=== PATIENT | female | born 1965 | race Caucasian/White ===

== ENCOUNTER 2023-03-25 12:28 | Outpatient (OUT) | payer OTHER, SELFPAY ==
[2023-03-25 13:44] LABS: Estimated Average Glucose 97 mg/dL
[2023-03-25 14:04] LABS: Basophils Percent Auto 0.3 % (0.2-2.0); Eosinophils Absolute Auto 0.1 10^3/uL (0.0-0.7); Eosinophils Percent Auto 0.7 % (0.9-7.0); Hematocrit 45.9 % (36.0-48.0); Hemoglobin 14.8 g/dL (12.0-16.0); Immature Granulocytes Abs Auto 0.03 10^3/uL (0.00-0.03); Immature Granulocytes Pct Auto 0.4 % (0.0-0.5); Lymphocytes Absolute Auto 2.6 10^3/uL (1.2-3.8); Lymphocytes Percent Auto 37.8 % (20.5-60.0); Mean Corpuscular HGB Conc 32.2 g/dL (29.9-35.2); Mean Corpuscular Hemoglobin 30.1 pg (26.7-34.0); Mean Corpuscular Volume 93.5 fL (81.0-99.0); Mean Platelet Volume 10.3 fL (9.5-13.5); Monocytes Absolute Auto 0.5 10^3/uL (0.3-0.8); Monocytes Percent Auto 7.1 % (1.7-12.0); Neutrophils Absolute Auto 3.6 10^3/uL (1.4-6.5); Neutrophils Percent Auto 53.7 % (43.0-75.0); Platelet Count 282 10^3/uL (150-450); Red Blood Count 4.91 10^6/uL (4.20-5.40); Red Cell Distribution Width 13.3 % (11.0-15.0); White Blood Count 6.8 10^3/uL (4.0-11.0)
[2023-03-25 15:28] LABS: Alanine Aminotransferase 23 U/L (14-59); Albumin Globulin Ratio 1.1; Albumin Level 4.1 g/dL (3.4-5.0); Alkaline Phosphatase 97 U/L (46-116); Anion Gap 10.8; Aspartate Amino Transferase 18 U/L (15-37); BUN Creatinine Ratio 13.4; Bilirubin Total 0.6 mg/dL (0.2-1.0); Calcium 9.3 mg/dL (8.5-10.1); Carbon Dioxide 30.3 mmol/L (21.0-32.0); Chloride 98 mmol/L (98-107); Chol HDL Ratio 2.5; Cholesterol 225 mg/dL (<=200); Estimated GFR (African America >60 (>=60); Estimated GFR (Non-African Ame >60 (>=60); Free T3 2.54 pg/mL (2.18-3.98); Globulin 3.9 g/dL; Glucose 87 mg/dL (74-106); HDL Cholesterol 90 mg/dL (40-60); Potassium 4.1 mmol/L (3.5-5.1); Sodium 135 mmol/L (136-145); Thyroid Stimulating Hormone 1.475 uIU/mL (0.358-3.740); Triglycerides 72 mg/dL (<=150); VLDL CHOLESTEROL 14.4 mg/dL
== END 2023-03-25 12:29 | disposition home or self-care (01) ==
LOC: LAB 12:34
PROVIDERS: PCP Family Medicine; Visit Provider Family Medicine
DX: Z00.00 Encounter for general adult medical examination without abnormal findings (principal)
CPT/HCPCS: 36415; 80053; 80061; 83036; 83540; 84436; 84443; 84481; 85025

== ENCOUNTER 2023-04-30 13:26 | Outpatient (REF) | payer OTHER, SELFPAY ==
[2023-04-30 14:08] LABS: Influenza Virus A Antigen Negative; Influenza Virus B Antigen Negative; Internal Control Within Normal Limits
== END 2023-04-30 13:27 | disposition home or self-care (01) ==
LOC: LAB 13:26
PROVIDERS: PCP Family Medicine; Visit Provider Family Medicine
DX: R53.83 Other fatigue (principal); R52 Pain, unspecified; R50.9 Fever, unspecified
CPT/HCPCS: 87804

== ENCOUNTER 2024-04-18 14:44 | Outpatient (OUT) | payer OTHER, SELFPAY ==
--- OUTSIDE RECORDS SUMMARY | 2024-04-18 14:52 | XMS_ITS | CCD ---
Author Organization [facility] Care Team Providers Care Outside Solar Sales Consultant Name Role Phone DR ANTONIA VALVERDE V Attending Unavailable NICOLLE, DR ANTONIA Rivas Admitting Unavailable NICOLLE, DR ANTONIA Rivas Consulting Unavailable JUN, DR LESLIE Primary Care Unavailable JUN, DR LESLIE Attending Unavailable JUN, DR LESLIE Admitting Unavailable JUN, DR LESLIE Primary Care Unavailable HOY, DR LESLIE Consulting Unavailable HOY, DR LESLIE Attending Unavailable FELIPEY, DR LESLIE Admitting Unavailable JUN, DR LESLIE Primary Care Unavailable Allergies Allergy Classification Reported Allergen(s) Allergy Type Date of Onset Reaction(s) Facility (1 source) Amoxicillin / Clavulanate Drug Allergy [facility] Rep[facility] (1 source) Sulfamethoxazole / Trimethoprim Drug Allergy [facility] (1 source) Vancomycin Drug Allergy [facility] Results Test Name Value Interpretation Reference Range Facility INSULINon 12-09-2021 Insulin 8.4 uIU/mL Normal 2.6-24.9 [facility] Comment on above: Performed By: #### C MP, TSH, T7, LIPID, LDH #### [facility] [address] [place] [address] Dr. Zain Vidal T4 LABCORPon 12-09-2021 T4 [Mass/Vol] 7.8 ug/dL Normal 4.5-12.0 [facility] Comment on above: Performed By: #### T 4LC #### [facility] [address] [place] [address] Dr. Zain Vidal CBC AUTO DIFFon 12-08-2021 BASO # 0.0 103/ul Normal 0.0-0.1 [facility] Comment on above: Performed By: #### C BC #### [facility] [address] [place] [address] Dr. Zain Vidal Basophils/100 WBC (Bld) 0.7 % Normal 0.2-2.0 [facility] Comment on above: Performed By: #### C BC #### [facility] [address] [place] [address] Dr. Zain Vidal EO # 0.1 103/ul Normal 0.0-0.7 [facility] Comment on above: Performed By: #### C BC #### [facility] [address] [place] [address] Dr. Zain Vidal Eosinophils/100 WBC (Bld) 1.3 % Normal 0.9-7.0 [facility] Comment on above: Performed By: #### C BC #### [facility] [address] [place] [address] Dr. Zain Vidal Erythrocyte distribution width (RBC) [Ratio] 13.1 % Normal 11.0-15.0 [facility] Comment on above: Performed By: #### C BC #### [facility] [address] [place] [address] Dr. Zain Vidal Hematocrit (Bld) [Volume fraction] 41.8 % Normal 36.0-48.0 [facility] Comment on above: Performed By: #### C BC #### [facility] [address] [place] [address] Dr. Zain Vidal Hemoglobin (Bld) [Mass/Vol] 13.4 g/dL Normal 12.0-16.0 [facility] Comment on above: Performed By: #### C BC #### [facility] [address] [place] [address] Dr. Zain Vidal IG # 0.01 10e3/ul Normal 0.00-0.03 [facility] Comment on above: Performed By: #### C BC #### [facility] [address] [place] [address] Dr. Zain Vidal IG % 0.2 % Normal 0.0-0.5 [facility] Comment on above: Performed By: #### C BC #### [facility] [address] [place] [address] Dr. Zain Vidal LYMPH # 2.3 103/ul Normal 1.2-3.8 [facility] Comment on above: Performed By: #### C BC #### [facility] [address] [place] [address] Dr. Zain Vidal Lymphocytes/100 WBC (Bld) 37.7 % Normal 20.5-60.0 [facility] Comment on above: Performed By: #### C BC #### [facility] [address] [place] [address] Dr. Zain Vidal MANUAL DIFF REQ NO Normal [facility] Comment on above: Performed By: #### C BC #### [facility] [address] [place] [address] Dr. Zain Vidal MCH (RBC) [Entitic mass] 29.8 pg Normal 26.7-34.0 [facility] [place] Comment on above: Performed By: #### C BC #### [facility] [address] [place] [address] Dr. Zain Vidal MCHC (RBC) [Mass/Vol] 32.1 g/dL Normal 29.9-35.2 [facility] Comment on above: Performed By: #### C BC #### [facility] [address] [place] [address] Dr. Zain Vidal MCV (RBC) [Entitic vol] 92.9 fL Normal 81.0-99.0 [facility] Comment on above: Performed By: #### C BC #### [facility] [address] [place] [address] Dr. Zain Vidal MONO # 0.5 103/ul Normal 0.3-0.8 [facility] Comment on above: Performed By: #### C BC #### [facility] [address] [place] [address] Dr. Zain Vidal Monocytes/100 WBC (Bld) 8.0 % Normal 1.7-12.0 [facility] Comment on above: Performed By: #### C BC #### [facility] [address] [place] [address] Dr. Zian Vidal NEUT # 3.1 103/ul Normal 1.4-6.5 [facility] Comment on above: Performed By: #### C BC #### [facility] [address] [place] [address] Dr. Zain Vidal Neutrophils/100 WBC (Bld) 52.1 % Normal 43.0-75.0 [facility] Comment on above: Performed By: #### C BC #### [facility] [address] [place] [address] Dr. Zain Vidal Platelet mean volume (Bld) [Entitic vol] 9.6 fL Normal 9.5-13.5 [facility] Comment on above: Performed By: #### C BC #### [facility] [address] [place] [address] Dr. Zain Vidal PLT 268 103/ul Normal 150-450 [facility] Comment on above: Performed By: #### C BC #### [facility] [address] [place] [address] Dr. Zain Vidal RBC 4.50 106/ul Normal 4.20-5.40 [facility] Comment on above: Performed By: #### C BC #### [facility] [address] [place] [address] Dr. Zain Vidal WBC 6.0 103/ul Normal 4.0-11.0 [facility] Comment on above: Performed By: #### C BC #### [facility] [address] [place] [address] Dr. Zain Vidal FREE THYROXINE INDEX T7on FTI 2.50 Normal 1.30-4.50 [facility] Comment on above: Performed By: #### C MP, TSH, T7, LIPID, LDH #### [facility] [address] [place] [address] Dr. Zain Vidal T3U 32.0 % Normal 30.0-39.0 [facility] Comment on above: Performed By: #### C MP, TSH, T7, LIPID, LDH #### [facility] [address] [place] [address] Dr. Zain Vidal T4 [Mass/Vol] 7.80 ug/dL Normal 4.80-13.90 [facility] Comment on above: Result Comment: T4 t esting performed by [facility] Performed By: #### C MP, TSH, T7, LIPID, LDH #### [facility] [address] [address] [address] Zain Vidal GLYCOHEMOGLOBIN A1Con 2021 ADA RECOMMENDATION SEE BELOW Normal [facility] Comment on above: Result Comment: ADA RECOMMENDED LIMIT 4.0 - 6.0 ADA THERAPEUTIC TARGET < 7.0 ACTION SUGGESTED > 7.0 Performed By: #### A 1C #### [facility] [address] [place] [address] Dr. Zain Vidal Glucose [Mass/Vol] 105 mg/dL Normal [facility] Comment on above: Performed By: #### A 1C #### [facility] [address] [place] [address] Dr. Zain Vidal HbA1c (Bld) [Mass fraction] 5.3 % Normal 4.5-6.2 [facility] Comment on above: Performed By: #### A 1C #### [facility] [address] [address] [address] Zain Vidal IRONon 12-08-2021 Iron [Mass/Vol] 60.0 ug/dL Normal 50.0-170.0 [facility] Comment on above: Performed By: #### I BOB #### [facility] [address] [place] [address] Dr. Zain Vidal LDHon 12-08-2021 LDH 145 U/L Normal 81-234 [facility] Comment on above: Performed By: #### C MP, TSH, T7, LIPID, LDH #### [facility] [address] [address] [address] Zain Vidal LIPID PROFILEon 12-08-2021 CHOL-HDL RATIO NORM SEE BELOW Normal [facility] Comment on above: Result Comment: 3.3 - 4.4 LOW RISK 4.4 - 7.1 AVERAGE RISK 7.1 - 11.0 MODERATE RISK >11.0 HIGH RISK Performed By: #### C MP, TSH, T7, LIPID, LDH #### [facility] [address] [address] [address] Zain Vidal Cholesterol [Mass/Vol] 219 mg/dL Critically high <=200 [facility] Comment on above: Performed By: #### C MP, TSH, T7, LIPID, LDH #### [facility] [address] [address] [address] Zain Vidal Cholesterol in HDL [Mass/Vol] 86 mg/dL Critically high 40-60 [facility] Comment on above: Performed By: #### C MP, TSH, T7, LIPID, LDH #### [facility] [address] [address] [address] Zain Vidal Cholesterol in LDL [Mass/Vol] 119.6 mg/dL Normal [facility] Comment on above: Performed By: #### C MP, TSH, T7, LIPID, LDH #### [facility] [address] [place] [address] Dr. Zain Vidal Cholesterol.total/Cho lesterol in HDL [Mass ratio] 2.5 {ratio} Normal [facility] Comment on above: Performed By: #### C MP, TSH, T7, LIPID, LDH #### [facility] [address] [address] [address] Zain Vidal HDL NORMAL > or = 60 mg/dl - LO W CARDIOVASCULAR RISK <40 mg/dl - HIGH CARDIOVASCULAR RISK Normal [facility] Comment on above: Performed By: #### C MP, TSH, T7, LIPID, LDH #### [facility] [address] [address] [address] Zain Vidal LDL CALC NORMAL SEE BELOW Normal [facility] Comment on above: Result Comment: <100 mg/dl OPTIMAL 100 - 129 mg/dl NEAR OR ABOVE OPTIMAL 130 - 159 mg/dl BORDERLINE HIGH 160 - 189 mg/dl HIGH >190 mg/dl VERY HIGH Performed By: #### C MP, TSH, T7, LIPID, LDH #### [facility] [address] [address] [address] Zain Vidal Triglyceride [Mass/Vol] 67 mg/dL Normal <=150 [facility] Comment on above: Performed By: #### C MP, TSH, T7, LIPID, LDH #### [facility] [address] [place] [address] Dr. Zain Vidal VLDL CALC 13.4 mg/dL Normal [facility] Comment on above: Performed By: #### C MP, TSH, T7, LIPID, LDH #### [facility] [address] [place] [address] Dr. Zain Vidal OCC BLD IMMUNO SCREENon OCCULT BLOOD Negative Normal NEGATIVE [facility] Comment on above: Performed By: #### O BSCRN #### [facility] [address] [place] [address] Dr. Zain Vidal PROF 14(COMP METB)on 022 Albumin [Mass/Vol] 3.7 g/dL Normal 3.4-5.0 [facility] Comment on above: Performed By: #### C MP, TSH, T7, LIPID, LDH #### [facility] [address] [place] [address] Dr. Zain Vidal Albumin/Globulin [Mass ratio] 1.0 {ratio} Normal [facility] Comment on above: Performed By: #### C MP, TSH, T7, LIPID, LDH #### [facility] [address] [place] [address] Dr. Zain Vidal ALP [Catalytic activity/Vol] 89 U/L Normal 46-116 [facility] Comment on above: Performed By: #### C MP, TSH, T7, LIPID, LDH #### [facility] [address] [place] [address] Dr. Zain Vidal ALT [Catalytic activity/Vol] 17 U/L Normal 14-59 [facility] Comment on above: Performed By: #### C MP, TSH, T7, LIPID, LDH #### [facility] [address] [place] [address] Dr. Zain Vidal Anion gap [Moles/Vol] 12.3 mmol/L Normal [facility] Comment on above: Performed By: #### C MP, TSH, T7, LIPID, LDH #### [facility] [address] [place] [address] Dr. Zain Vidal AST [Catalytic activity/Vol] 18 U/L Normal 15-37 [facility] Comment on above: Performed By: #### C MP, TSH, T7, LIPID, LDH #### [facility] [address] [address] [address] Zain Vidal Bilirubin [Mass/Vol] 0.5 mg/dL Normal 0.2-1.0 [facility] Comment on above: Performed By: #### C MP, TSH, T7, LIPID, LDH #### [facility] [address] [place] [address] Dr. Zain Vidal Calcium [Mass/Vol] 8.7 mg/dL Normal 8.5-10.1 [facility] Comment on above: Performed By: #### C MP, TSH, T7, LIPID, LDH #### [facility] [address] [place] [address] Dr. Zain Vidal Chloride [Moles/Vol] 101 mmol/L Normal 98-107 [facility] Comment on above: Performed By: #### C MP, TSH, T7, LIPID, LDH #### [facility] [address] [place] [address] Dr. Zain Vidal CO2 [Moles/Vol] 28.5 mmol/L Normal 21.0-32.0 [facility] Comment on above: Performed By: #### C MP, TSH, T7, LIPID, LDH #### [facility] [address] [place] [address] Dr. Zain Vidal Creatinine [Mass/Vol] 0.70 mg/dL Normal 0.55-1.02 [facility] Comment on above: Performed By: #### C MP, TSH, T7, LIPID, LDH #### [facility] [address] [address] [address] Zain Vidal EGFR-AF BERMUDIAN >60 Normal >=60 [facility] Comment on above: Performed By: #### C MP, TSH, T7, LIPID, LDH #### [facility] [address] [place] [address] Dr. Zain Vidal EGFR-NON AF BERMUDIAN >60 Normal >=60 [facility] Comment on above: Performed By: #### C MP, TSH, T7, LIPID, LDH #### [facility] [address] [address] [address] Zain Vidal Globulin (S) [Mass/Vol] 3.6 g/dL Normal [facility] Comment on above: Performed By: #### C MP, TSH, T7, LIPID, LDH #### [facility] [address] [place] [address] Dr. Zain Vidal Glucose [Mass/Vol] 84 mg/dL Normal 74-106 [facility] Comment on above: Performed By: #### C MP, TSH, T7, LIPID, LDH #### [facility] [address] [place] [address] Dr. Zain Vidal Potassium [Moles/Vol] 3.8 mmol/L Normal 3.5-5.1 [facility] Comment on above: Performed By: #### C MP, TSH, T7, LIPID, LDH #### [facility] [address] [place] [address] Dr. Zain Vidal Protein [Mass/Vol] 7.3 g/dL Normal 6.4-8.2 [facility] Comment on above: Performed By: #### C MP, TSH, T7, LIPID, LDH #### [facility] [address] [place] [address] Dr. Zain Vidal Sodium [Moles/Vol] 138 mmol/L Normal 136-145 [facility] Comment on above: Performed By: #### C MP, TSH, T7, LIPID, LDH #### [facility] [address] [place] [address] Dr. Zain Vidal Urea nitrogen [Mass/Vol] 11.0 mg/dL Normal 7.0-18.0 [facility] Comment on above: Performed By: #### C MP, TSH, T7, LIPID, LDH #### [facility] [address] [place] [address] Dr. Zain Vidal Urea nitrogen/Creatinine [Mass ratio] 15.7 mg/mg Normal [facility] Comment on above: Performed By: #### C MP, TSH, T7, LIPID, LDH #### [facility] [address] [place], [place] [address] Dr. Zain Vidal TSHon 12-08-2021 TSH 1.697 uIU/mL Normal 0.358-3.740 [facility] Comment on above: Performed By: #### C MP, TSH, T7, LIPID, LDH #### [facility] [id number] Zain Vidal TSH RANGE SEE BELOW Normal [facility] Comment on above: Result Comment: <0.3 4 UIU/ml HYPERTHYROID 0.34-5.60 UIU/ml EUTHYROID >5.60 UIU/ml HYPOTHYROID Performed By: #### C MP, TSH, T7, LIPID, LDH #### [facility] [address] [address] [address] Zain Vidal Coding Summary.on 03-11-2018 Coding Summary. CODING DATE: 03/11/2018 FINAL [facility] [place] [facility] STATUS: Home (Routine DC) PAYOR: Commercial Insurance ADMIT DX: REASON FOR VISIT DX: Z01.419 Encounter for gynecological examination (general) (routine) without abnormal findings FINAL DX: PRINCIPAL: Z01.419 Encounter for gynecological examination (general) (routine) without abnormal findings SECONDARY: PROCEDURES DOCTOR NAME DATE NOTE: The code number assigned matches the documented diagnosis and / or procedure in the patient's chart. However, the narrative phrase printed from the coding software may appear abbreviated, or result in slightly different terminology. Coded By: Kalyn Langley Date Saved: 03/11/2018 01:09 pm Normal [facility] IGP W/hpv Rfx [id number] 03-09 [employer] Cyto stain ID Nom (Cervical or vaginal smear or scraping) Comment [facility] Comment on above: Result Comment: Mary Beth Johnston, Asphalt Heater Operator (ASCP) Performed By: #### 1 [id number] ####[facility] [id number] [id number] Cytology report Cyto stain.thin prep Doc (Cervical or vaginal smear or scraping) Comment [facility] Comment on above: Result Comment: This liquid based ThinPrep(R) pap test was screened with the use of an image guided system. Performed By: #### 1 [id number] ####[facility] [id number] [place], [place] [id number] Diagnosis: Comment [facility] Comment on above: Result Comment: NEGA TIVE FOR INTRAEPITHELIAL LESION AND MALIGNANCY. Performed By: #### 1 [id number] ####[address] [address] HPV Indication Comment [facility] Comment on above: Result Comment: The HPV DNA reflex criteria were not met with this specimen result therefore, no HPV testing was performed. No. of containers..01 ThinPrep Vial Performed at: [facility] [place] [id number] MD Renetta English Performed By: #### 1 [id number] ####[address] [place] [id number] Note Comment [facility] Comment on above: Result Comment: The Pap smear is a screening test designed to aid in the detection of premalignant and malignant conditions of the uterine cervix. It is not a diagnostic procedure and should not be used as the sole means of detecting cervical cancer. Both false-positive and false-negative reports do occur. Performed By: #### 1 [id number] ####[address] [id number] Statement of adequacy Cyto stain Interp (Cervical or vaginal smear or scraping) Comment [facility] Comment on above: Result Comment: Sati sfactory for evaluation. Endocervical and/or squamous metaplastic cells (endocervical component) are present. Performed By: #### 1 [id number] ####[address] [address] Coding Summary.on 02-07-2018 Coding Summary. CODING DATE: 02/07/2018 FINAL [facility] [place] [facility] STATUS: Home (Routine DC) PAYOR: Commercial Insurance APC DESCRIPTION 5312 Level 2 Lower GI Procedures ADMIT DX: REASON FOR VISIT DX: Z12.11 Encounter for screening for malignant neoplasm of colon FINAL DX: PRINCIPAL: Z12.11 Encounter for screening for malignant neoplasm of colon SECONDARY: K62.1 Rectal polyp Z85.3 Personal history of malignant neoplasm of breast F32.9 Major depressive disorder, single episode, unspecified F41.9 Anxiety disorder, unspecified K21.9 Gastro-esophageal reflux disease without esophagitis Z87.891 Personal history of nicotine dependence Z79.82 long term (current) use of aspirin PYMT PROC APC STAT DESCRIPTION DOCTOR NAME DATE 46529 7571 T Colonoscopy, flexible; Shreyas Szymanski MD 02/03/2018 with biopsy, single or multiple PT Colorectal cancer screening test; converted to diagnostic test or other procedure 53054 Anesthesia for lower Shreyas Szymanski MD 02/03/2018 intestinal endoscopic procedures, endoscope introduced distal to duodenum; not otherwise specified PT Colorectal cancer screening test; converted to diagnostic test or other procedure NOTE: The code number assigned matches the documented diagnosis and / or procedure in the patient's chart. However, the narrative phrase printed from the coding software may appear abbreviated, or result in slightly different terminology. Coded By: Lisa Gómez Date Saved: 02/07/2018 03:57 pm Normal [facility] Coding Summary.on 02-04-2018 Coding Summary. CODING DATE: 02/04/2018 FINAL [facility] [place] [facility] STATUS: Home (Routine DC) PAYOR: Commercial Insurance ADMIT DX: REASON FOR VISIT DX: Z00.00 Encounter for general adult medical examination without abnormal findings FINAL DX: PRINCIPAL: Z00.00 Encounter for general adult medical examination without abnormal findings SECONDARY: PROCEDURES DOCTOR NAME DATE NOTE: The code number assigned matches the documented diagnosis and / or procedure in the patient's chart. However, the narrative phrase printed from the coding software may appear abbreviated, or result in slightly different terminology. Coded By: Alexia Hall Date Saved: 02/04/2018 11:50 am Normal [facility] Insulin Lvlon 02-04-2018 Insulin Qn 6.7 mcIU/mL 2.6-24.9 [facility] Comment on above: Result Comment: Perf ormed at: [facility] [address] [id number] PhD Mark Anthony Haji Performed By: #### 2 [id number], [id number], [id number], [id number], [id number], [id number] ####[facility] [id number] [place] [address] Main OR Intraoperative Recor don 02-04-2018 Main OR Intraoperative Record IntraOp Document Type FT Summary Primary Physician: Shreyas Szymanski MD Finalized Date/Time: 02/04/18 08:57:21 Pt. Name: GREGORYBENJAMIN/Sex: 1965 Female Med Rec #: [id number] Physician: Shreyas Szymanski MD Financial #: [id number] Pt. Type: O Room/Bed: / Admit/Disch: 02/03/18 07:15:07 - 02/03/18 23:59:59 Institution: Case Times FT Entry 1 Patient Times In Room 02/03/18 08:07:00 Out Room 02/03/18 08:35:00 Procedure Times Start 02/03/18 08:11:00 Stop 02/03/18 08:32:00 Anesthesia Times Start 02/03/18 08:07:00 Stop 02/03/18 08:35:00 Time at [facility] 02/03/18 08:25:00 Last Modified By: Renetta Silveira CST 02/03/18 08:35:49 General Comments: 02/04/2018 Chart opened to review and send charges Francois Sanchez CST Case Attendance FT Entry 1 Entry 2 Entry 3 Case Attendee Bill Weiss Jr., DO, MD, Shreyas Albarran RN, Tiera Cevallos Role Performed Anesthesiologist of Surgeon - Primary Manager Club - Primary Record Time In 02/03/18 08:07:00 02/03/18 08:07:00 02/03/18 08:07:00 Time Out 02/03/18 08:35:00 02/03/18 08:35:00 02/03/18 08:35:00 Procedure COLONOSCOPY(.) COLONOSCOPY(.) COLONOSCOPY(.) Comments Last Modified By: Deion RN, Tiera Albarran RN, Tiera Albarran RN, Tiera Cevallos 02/03/18 08:35:50 02/03/18 08:35:50 02/03/18 08:35:50 Entry 4 Case Attendee Cindy Stephenson CST Role Performed Scrub - Primary Time In 02/03/18 08:07:00 Time Out 02/03/18 08:35:00 Procedure COLONOSCOPY(.) Comments Last Modified By: Tiera Albarran RN 02/03/18 08:35:50 Perioperative Protocols FT Pre-Care Text: Implements protective measures prior to operative or invasive procedure, confirms identity before the operative or invasive procedure, verifies operative procedure, surgical site, and laterality Entry 1 Procedure(s) COLONOSCOPY(.) Patient Identity Birthday, ID Band Verified (select at Check, Patient least 2): Participation Consents / H and P Anesthesia Consent, Operative Site N/A Verified HandP, Surgery/Procedure Marking Verified Consent Surgical Site No Laterality Verified n/a Verified Procedure Verified Yes Correct Patient Yes Position Verified Availability Equipment, Medication Prep Dry n/a Verified (If Applicable) PreOp Antibiotic No Time Out Shreyas Szymanski MD, Given Participants Bill Weiss Jr., DO, Dieon TORRES, Tiera Cevallos, Sachin OBRIEN, Cindy Time Out Complete 02/03/18 08:08:00 Outcomes Met? Yes Last Modified By: Tiera Albarran RN 02/03/18 08:11:37 Post-Care Text: The patient is free from signs and symptoms of injury caused by extraneous objects Allergy Information FT Pre-Care Text: Verifies allergies Entry 1 Allergies Reviewed? Yes Allergies Reviewed Self/Patient With Outcomes Met? Yes Last Modified By: Tiera Albarran RN 02/03/18 07:10:13 Post-Care Text: The patient received appropriate medication(s) safely administered during the perioperative period Surgical Procedures FT Entry 1 Procedure Description Procedure COLONOSCOPY Modifiers . Surgeon Description Colonoscopy with rectal polypectomy using biopsy forceps to remove. Primary Procedure Yes Primary Surgeon Shreays Szymanski MD Start 02/03/18 08:11:00 Stop 02/03/18 08:32:00 Anesthesia Type General Surgical Service General Wound Class 2 - Clean-Contaminated Last Modified By: Tiera Albarran RN 02/03/18 08:32:36 General Case Data FT Pre-Care Text: Classifies surgical wound, implements aseptic technique, initiates traffic control Entry 1 Case Information OR ENDO 2 FT Case Level Level 2 Wound Class 2 - Clean-Contaminated Specialty General ASA Class 2 Preop Diagnosis SCREENING Postop Same As Preop No Postop Diagnosis Rectal polyp Outcomes Met? Yes Last Modified By: Tiera Albarran RN 02/03/18 08:32:33 Post-Care Text: The patient is free from signs and symptoms of infection Skin Assessment (Pre Procedure) FT Pre-Care Text: Implements protective measures to prevent skin/ tissue injury due to thermal or mechanical sources Evaluates for signs and symptoms of physical injury to skin and tissue Entry 1 Skin Integrity Intact, Dellroy, Warm, and Skin Abnormality No Dry Outcomes Met? Yes Last Modified By: Tiera Albarran RN 02/03/18 07:10:40 Post-Care Text: The patient is free from signs and symptoms of injury caused by extraneous objects Patient Positioning FT Pre-Care Text: Identifies physical alterations that require additional precautions for procedure-specific positioning, verifies presence of prosthetics or corrective devices, positions the patient, evaluates the patient for signs and symptoms of injury as a result of positioning Entry 1 Procedure COLONOSCOPY(.) Body Position Lateral, right side up Feet Uncrossed? Yes Left Arm Position Resting at Side Right Arm Position Resting at Side Left Leg Position Extended Right Leg Position Extended Positioning Device Safety Strap, Pillow Under Head Large Press Points Checked Yes By Tiera Albarran RN, Fennig Jr. DO, Gary Outcomes Met? Yes Last Modified By: Tiera Albarran RN 02/03/18 07:10:51 Post-Care Text: The patient is free from signs and symptoms of injury related to positioning Patient Care Devices FT Pre-Care Text: Implements protective measures to prevent skin/ tissue injury due to thermal or mechanical sources Entry 1 Entry 2 Equipment Type ENDOSCOPY VIDEO MONITOR CHARGE SURGERY SYSTEM[F] [F] Equipment Number [id number] Equipment Setting Outcomes Met? Yes Yes Last Modified By: Tiera Albarran RN, RN, Kara N 02/03/18 07:11:13 02/03/18 07:11:13 Post-Care Text: The patient is free from signs and symptoms of injury caused by extraneous objects Transport To OR FT Pre-Care Text: Transports according to individual needs. Evaluates for signs and symptoms of skin and tissue injury as a result of transfer or transport Entry 1 Via Cart By Tiera Albarran RN Safety Precautions Side Rails Up Outcomes Met? Yes Last Modified By: Tiera Albarran RN 02/03/18 07:11:20 Post-Care Text: The patient is free from signs and symptoms of injury related to transfer/transport Departure From OR FT Pre-Care Text: Transports according to individual needs. Evaluates for signs and symptoms of skin and tissue injury as a result of transfer or transport. Entry 1 Via Cart Safety Precautions Safety Strap, Side Rails Up PostOp Destination PACU Transported By Tiera Albarran RN Patient Status Stable Skin. Condition Intact, Dellroy, Warm, and Dry Airway Maintenance Oxygen in Use? No Airway Device N/A Outcomes Met? Yes Last Modified By: Tiera Albarran RN 02/03/18 07:12:04 Post-Care Text: The patient is free from signs and symptoms of injury related to transfer/transport General Comments: Report given to PACU,RN/KS,senior administrative support Administration FT Pre-Care Text: Verifies allergies, administers prescribed medications and solutions, administers prescribed antibiotic therapy and immunizing agents as ordered, evaluates response to medications Administers prescribed medications and solutions Entry 1 Expiration Date Yes Outcomes Met? Yes Verified Last Modified By: Tiera Albarran RN 02/03/18 07:11:52 Post-Care Text: The patient received appropriate medication(s) safely administered during the perioperative period For [facility] please see scanned medication reconcilliation form for medications used at the field during the procedure. Cultures and Specimens FT Pre-Care Text: Manages specimen handling and disposition Manages culture specimen collection Entry 1 Cultures Ordered n/a Specimens Ordered Yes Specimen Disposition Designated OR Area Frozen Section Times Outcomes Met? Yes Last Modified By: Tiera Albarran RN 02/03/18 08:32:20 Post-Care Text: The patient is free from signs and symptoms of injury caused by extraneous objects The patient is free from signs and symptoms of infection Case Comments Finalized By: Renetta Silveira CST Document Signatures Signed By: Tiera Albarran RN 02/03/18 08:35 Renetta Silveira CST 02/04/18 08:57 Normal [facility] Auto Diffon 02-03-2018 Basophils #/vol (Bld) 0.3 % Normal 0.0-2.0 [facility] Comment on above: Order Comment: Order Added by Discern Expert. Performed By: #### 2 119770, 0867159, 6832972, 4769642, 9516285, 85647734, 65421537, 272159197, 63985898 #### [facility] [address] [place] [address] Basophils/Leukocytes Auto Pure number fraction (Bld) 0.0 E9/L Normal 0.0-0.2 [facility] Comment on above: Order Comment: Order Added by Discern Expert. Performed By: #### 2 546841, 2481156, 5929114, 8698444, 3220401, 23309060, 34551643, 721039165, 58175656 #### [facility] [address] [place] [address] Eosinophils/100 WBC (Bld) 0.6 % Normal 0.0-8.0 [facility] Comment on above: Order Comment: Order Added by Discern Expert. Performed By: #### 2 566871, 9879133, 6081476, 4826653, 8919803, 04779902, 48459824, 578489398, 91506529 #### [facility] [address] [place] [address] Eosinophils/Leukocyte s Auto Pure number fraction (Bld) 0.0 E9/L Normal 0.0-0.5 [facility] Comment on above: Order Comment: Order Added by Discern Expert. Performed By: #### 2 474197, 5881731, 9277705, 1920259, 3408950, 15620764, 59773080, 542995755, 91882745 #### [facility] [address] [place] [address] Lymphocytes/100 WBC (Bld) 25.1 % Normal 14.0-50.0 [facility] Comment on above: Order Comment: Order Added by Discern Expert. Performed By: #### 2 689434, 7586444, 4055985, 5489037, 4304122, 19549805, 31961655, 317713274, 75716872 #### [facility] [address] [place] [address] Lymphocytes/Leukocyte s Auto Pure number fraction (Bld) 1.3 E9/L Normal 1.0-4.0 [facility] Comment on above: Order Comment: Order Added by Discern Expert. Performed By: #### 2 142723, 5772096, 8517777, 4535909, 1817599, 06483702, 22475734, 776345714, 56018391 #### [facility] [address] [place] [address] Monocytes/100 WBC (Bld) 8.5 % Normal 4.0-14.0 [facility] Comment on above: Order Comment: Order Added by Discern Expert. Performed By: #### 2 914408, 3644063, 4127970, 0734479, 0523782, 10990381, 74512223, 750974006, 81186517 #### [facility] [address] [place] [address] Monocytes/Leukocytes Auto Pure number fraction (Bld) 0.4 E9/L Normal 0.2-1.0 [facility] Comment on above: Order Comment: Order Added by Discern Expert. Performed By: #### 2 626875, 9417730, 1463343, 0477250, 7794427, 43443369, 96068955, 508675163, 93852741 #### [facility] [address] [place] [address] Neutrophils/100 WBC (Bld) 65.5 % Normal 36.0-75.0 [facility] Comment on above: Order Comment: Order Added by Discern Expert. Performed By: #### 2 694794, 4609697, 1827525, 9251137, 7947143, 02017189, 01403561, 491638658, 88040343 #### [facility] [address] [place] [address] Neutrophils/Leukocyte s Auto Pure number fraction (Bld) 3.4 E9/L Normal 2.0-7.5 [facility] Comment on above: Order Comment: Order Added by Bebe Expert. Performed By: #### 2 218675, 2370328, 6908169, 8847230, 9409885, 85908497, 11907620, 277691011, 66878114 #### [facility] [address] [place] [address] CBC w/ Auto Diffon 8 Erythrocyte distribution width Ratio (RBC) 13.4 % Normal 10.9-14.2 [facility] Comment on above: Performed By: #### 2 505589, 1273700, 0706582, 1409345, 3094721, 24766821, 75507504, 105038345, 84878107 #### [facility] [address] [place] [address] Hematocrit Volume Fraction (Bld) 40.5 % Normal 34.0-46.0 [facility] Comment on above: Performed By: #### 2 366833, 3505947, 3608435, 7943847, 4399995, 29584361, 74682066, 890770058, 28851047 #### [facility] [address] [place] [address] Hemoglobin mass conc (Bld) 13.1 g/dL Normal 12.0-16.0 [facility] Comment on above: Performed By: #### 2 588063, 4040490, 3618209, 1523658, 0774399, 65902528, 45618011, 103844989, 20458442 #### [facility] [address] [place] [address] MCH Entitic mass (RBC) 29.4 pg Normal 27.0-34.0 [facility] Comment on above: Performed By: #### 2 153024, 2746622, 8685489, 2713222, 2509105, 79533023, 04289321, 609597826, 35884597 #### [facility] [address] [place] [address] MCHC mass conc (RBC) 32.4 g/dL Normal 31.4-39.3 [facility] Comment on above: Performed By: #### 2 596915, 0457762, 9202363, 0506247, 5357628, 04693148, 80987360, 453603615, 82935992 #### [facility] [address] [place] [address] MCV Entitic volume (RBC) 90.7 fL Normal 80.0-100.0 [facility] Comment on above: Performed By: #### 2 178232, 1353609, 1162809, 3808562, 8663776, 38301019, 66383251, 550700646, 04684004 #### [facility] [address] [place] [address] Platelet mean volume Entitic volume (Bld) 8.4 fL Normal 6.4-10.8 [facility] Comment on above: Performed By: #### 2 199125, 1789849, 7186072, 3400501, 1077717, 22641610, 73620829, 198310527, 06399824 #### [facility] [address] [place] [address] Platelets #/vol (Bld) 228.0 E9/L Normal 150.0-500.0 [facility] Comment on above: Performed By: #### 2 361490, 1491685, 0692875, 7198554, 6782852, 38785057, 53861900, 170248282, 24806126 #### [facility] [address] [place] [address] RBC #/vol (Bld) 4.5 E12/L Normal 4.3-5.9 [facility] Comment on above: Performed By: #### 2 338408, 8134572, 3484255, 9836216, 3420151, 73687583, 56136924, 844421640, 79414487 #### [facility] [address] [place], [place] [address] WBC corrected for nucl RBC Auto #/vol (Bld) 5.2 E9/L Normal 4.0-11.0 [facility] Comment on above: Performed By: #### 2 072193, 6465812, 5269272, 0414280, 0906143, 83838320, 86393859, 245967095, 85639414 #### [facility] [address] [place] [address] CMPon 02-03-2018 Albumin mass conc 3.8 g/dL Normal 3.3-5.0 [facility] Comment on above: Performed By: #### 2 457412, 5066869, 0048267, 1121160, 7284019, 99224285, 26444082, 754999353, 77768540 #### [facility] [address] [place] [address] Albumin mass conc 1.4 g/dL Normal 1.1-2.2 [facility] Comment on above: Performed By: #### 2 807532, 3125268, 0129179, 0418794, 9736747, 05861334, 77882798, 709096380, 80171896 #### [facility] [address] [place] [address] ALP enzyme act/vol 67 Int._Unit/L Normal 21-98 [facility] Comment on above: Performed By: #### 2 507058, 3495001, 0887193, 1361548, 2735386, 30500598, 38222045, 924870101, 07257433 #### [facility] [address] [place] [address] ALT No additional P-5'-P enzyme act/vol 15 Int._Unit/L Normal 6-46 [facility] Comment on above: Performed By: #### 2 039824, 5348186, 4415798, 9812687, 4789646, 75500648, 57181518, 690068466, 38003021 #### [facility] [address] [place] [address] Anion gap molar conc 11 mmol/L Normal 6-16 [facility] Comment on above: Performed By: #### 2 812514, 9119783, 5466257, 8088793, 7003828, 44189899, 05423260, 976494936, 50378127 #### [facility] [address] [place] [address] AST enzyme act/vol 20 Int._Unit/L Normal 5-43 [facility] Comment on above: Performed By: #### 2 837187, 5732287, 4128846, 2342961, 2044724, 07617604, 22134101, 557801559, 81319024 #### [facility] [address] [place] [address] Bilirubin mass conc 0.5 mg/dL Normal 0.0-1.1 [facility] Comment on above: Performed By: #### 2 829289, 5014364, 1588490, 4614855, 1278207, 05857087, 87539293, 324347898, 81480642 #### [facility] [address] [place] [address] Calcium mass conc 8.6 mg/dL Low 8.9-11.1 [facility] Comment on above: Performed By: #### 2 406204, 2148481, 2823673, 9052943, 9768063, 70727803, 09827796, 957111907, 16085941 #### [facility] [address] [place] [address] Chloride molar conc 101 mmol/L Normal 101-111 [facility] Comment on above: Performed By: #### 2 451220, 5077591, 3939872, 9349471, 7825227, 32155696, 98484339, 255836054, 84974748 #### [facility] [address] [place] [address] CO2 molar conc 26 mmol/L Normal 21-31 [facility] Comment on above: Performed By: #### 2 713336, 0101109, 0604269, 4691388, 2252734, 63618785, 46679926, 335726570, 09137604 #### [facility] [address] [place] [address] Creatinine mass conc 0.8 mg/dL Normal 0.5-1.3 [facility] Comment on above: Performed By: #### 2 697436, 7295035, 6575580, 4427119, 2157256, 02756773, 90151865, 084644431, 42507543 #### [facility] [address] [place] [address] Globulin mass conc (S) 2.8 g/dL Normal 1.4-4.0 [facility] Comment on above: Performed By: #### 2 324477, 2154317, 7795799, 6531794, 4620312, 01282943, 66065859, 327914803, 18011685 #### [facility] [address] [place] [address] Glucose mass conc 89 mg/dL Normal 55-199 [facility] Comment on above: Result Comment: If t his glucose result represents a fasting glucose, interpretation should refer to the following reference range: 55-99 mg/dL Performed By: #### 2 613995, 2363243, 8156004, 7483277, 4647974, 09895650, 66919435, 111246539, 90178042 #### [facility] [address] [place] [address] Potassium molar conc 3.2 mmol/L Low 3.5-5.3 [facility] Comment on above: Performed By: #### 2 183484, 3595941, 5265641, 5805679, 5997910, 33041663, 70046553, 199261387, 14870994 #### [facility] [address] [place] [address] Protein mass conc 6.6 g/dL Normal 6.0-7.8 [facility] Comment on above: Performed By: #### 2 112893, 9064932, 0607387, 0775119, 9315033, 69205015, 90966215, 638274530, 40648942 #### [facility] [address] [place] [address] Sodium molar conc 135 mmol/L Normal 135-145 [facility] Comment on above: Performed By: #### 2 908010, 7696940, 9496374, 0844208, 7513687, 29351491, 21550558, 810583842, 18912589 #### [facility] [address] [place] [address] Urea nitrogen mass conc 11 mg/dL Normal 5-21 [facility] Comment on above: Performed By: #### 2 222215, 9402061, 9529739, 4277867, 3766513, 76713075, 83770562, 954722971, 06606990 #### [facility] [address] [place] [address] Urea nitrogen/Creatinine mass ratio 14 No Units Normal 10-20 [facility] Comment on above: Performed By: #### 2 186865, 7449134, 7165439, 8104119, 9878057, 03830919, 47883163, 439585814, 64035231 #### [facility] [address] [place] [address] History and Physicalon 02-03 History and Physical Patient: BENJAMIN JENKINS Age: 52 years Sex: Female : 1965 Associated Diagnoses: None Author: Shreyas Szymanski MD Subjective no changes to H & P Normal [facility] Comment on above: Result Comment: Elec tronically Signed By: Shreyas Szymanski MD\.br\Date and Time Signed: 02/03/18 07:20 EDT Inpatient Patient Summaryon 02-03-2018 Inpatient Patient Summary [facility] Clinical Discharge Instructions PERSON INFORMATION Name: BENJAMIN JENKINS PHYSICIANS Admitting Physician: Shreyas Szymanski MD Attending Physician: Shreyas Szymanski MD PCP: Anuj Coleman MD Discharge Diagnosis: Colon polyp Comment: PATIENT EDUCATION INFORMATION Instructions: Colonoscopy, Care After Surgery Salam (CUSTOM); Colon Polyps Medication Leaflets: Follow up: With: Address: When: Shreyas Szymanski [address] [place] [id number] [facility] (6) Within 7 to 10 days Comments: Call for any problems. Call for followup appointment MEDICATION LIST Comment: Normal [facility] Ironon 02-03-2018 Iron mass conc 52 microgram/dL Normal 35-153 [facility] Comment on above: Performed By: #### 2 043257, 0436648, 1748621, 8945646, 0539482, 29411301, 76015466, 841751655, 47381850 #### [facility] [address] [place] [address] Lipid Panelon 02-03-2018 Cholesterol in HDL mass conc 77 mg/dL [facility] Comment on above: Result Comment: HDL > or equal to 60 mg/dL: Low cardiovascular risk HDL < 40 mg/dL : High cardiovascular risk Performed By: #### 2 583562, 7897396, 9848117, 0215689, 0233339, 94085324, 05186674, 800277561, 90764675 ####[facility] [address] [place] [address] Cholesterol in LDL mass conc 111 mg/dL Normal <=129 [facility] Comment on above: Performed By: #### 2 266351, 3482487, 1948641, 0189069, 0839297, 23680898, 03309743, 881649195, 32420859 ####[facility] [address] [place] [address] Cholesterol in VLDL mass conc 27 mg/dL Normal 7-40 [facility] Comment on above: Performed By: #### 2 585196, 1026731, 0368895, 3795551, 9708095, 93135012, 83332139, 747210278, 14112300 ####[facility] [address] [place] [address] Cholesterol mass conc 216 mg/dL High 120-200 [facility] Comment on above: Performed By: #### 2 103264, 0721256, 0558066, 6038257, 5042473, 20053019, 79942743, 116736673, 60735329 ####[facility] [id number] [place] [address] Triglyceride mass conc 135 mg/dL Normal <=149 [facility] Comment on above: Performed By: #### 2 360900, 1206301, 6470423, 0963728, 0860991, 82211402, 53607574, 467330906, 93870381 ####[facility] [address] [place] [address] Main OR PACU I Recordon Main OR PACU I Record PACU Phase I Docum ent Type FT Summary Primary Physician: Shreyas Szymanski MD Finalized Date/Time: 02/03/18 09:32:49 Pt. Name: BENJAMIN JENKINS/Sex: 1965 Female Med Rec #: [id number] Physician: Shreyas Szymanski MD Financial #: [id number] Pt. Type: O Room/Bed: / Admit/Disch: 02/03/18 07:15:07 - Institution: Case Times PACU I FT Pre-Care Text: Identifies barriers to communication and implements measures to provide psychological support Develops individualized plan of care, and ensures continuity of care Maintains patient's dignity and privacy, and maintains patient confidentiality Identifies and reports philosophical, cultural, and spiritual beliefs and values Identifies individual values and wishes concerning care Implements aseptic technique, and administers prescribed antibiotic therapy and immunizing agents as ordered Evaluates postoperative tissue perfusion Implements thermoregulation measures, and monitors body temperature Evaluates postoperative respiratory status Evaluates postoperative cardiac status Evaluates postoperative neurological status Assesses pain control, collaborated in initiating patient-controlled analgesia and implements alternative methods of pain control Verifies allergies, administers prescribed medications and solutions, evaluates response to medications Entry 1 In PACU I 02/03/18 08:37:00 Discharge from PACU 02/03/18 09:25:00 I Outcomes Met? Yes Last Modified By: Salma Faulkner RN 02/03/18 09:32:18 Post-Care Text: The patient demonstrates knowledge of the expected response to the operative or invasive procedure The patient's care is consistent with the individualized perioperative plan of care The patient's right to privacy is maintained The patient's value system, lifestyle, ethnicity, and culture are considered, respected, and incorporated into the perioperative plan of care The patient participates in decisions affecting his or her perioperative plan of care The patient is free from signs and symptoms of infection The patient has wound/tissue perfusion consistent with or improved from baseline levels established preoperatively The patient is at or returning to normothermia at the conclusion of the immediate postoperative period The patient's respiratory function is consistent with or improved from baseline levels established preoperatively The patient's cardiovascular status is consistent with or improved from baseline levels established preoperatively The patient's cardiovascular status is consistent with or improved from baseline levels established preoperatively The patient demonstrates and/or reports adequate pain control throughout the perioperative period The patient received appropriate medication(s), safely administered during the perioperative period Acuity Level PACU I FT Entry 1 Start Time 02/03/18 08:37:00 Stop Time 02/03/18 09:25:00 Acuity Level Acuity Level I Last Modified By: Salma Faulkner RN 02/03/18 09:32:44 Finalized By: Salma Faulkner RN Document Signatures Signed By: Salma Faulkner RN 02/03/18 09:32 Normal [facility] Main OR Preoperative Recordo n 02-03-2018 Main OR Preoperative Record Holding Area Document Type FT Summary Primary Physician: Shreyas Szymanski MD Finalized Date/Time: 02/03/18 07:55:36 Pt. Name: BENJAMIN JENKINS/Sex: 1965 Female Med Rec #: [id number] Physician: Shreyas Szymanski MD Financial #: [id number] Pt. Type: O Room/Bed: / Admit/Disch: 02/03/18 07:15:07 - Institution: Case Times Holding FT Pre-Care Text: Verifies consent for planned procedure, identifies individual values and wishes concerning care, includes family members in perioperative teaching Secures patient's records' belongings, and valuables, maintains patient's dignity and privacy, and maintains patient confidentiality Entry 1 In Holding 02/03/18 07:34:00 Outcomes Met? Yes Last Modified By: Sarah Miller RN 02/03/18 07:39:57 Post-Care Text: The patient participates in decisions affecting his or her perioperative plan of care The patient's right to privacy is maintained Surgery Checklist FT Entry 1 Patient Birthday, ID Band Procedure History and Physical, Identification: Check, Patient Verification: Surgical Consent, With Participation Patient NPO after Midnight: Yes Date/Time: 02/03/18 00:00:00 Personal Items: Jewelry Personal Items necklace, earrings Comment: Limitations: none Complaints of Pain: No Operative Site n/a Availability Equipment Marking: Verified: Does Patient Smoke No Patient states Yes Comment - Adult significant other - postop adult Supervision Maurisio supervision available Case Cancelled in No Holding Area see comments below for reason Last Modified By: Sarah Miller RN 02/03/18 07:42:16 Finalized By: Sarah Miller RN Document Signatures Signed By: Sarah Miller RN 02/03/18 07:42 Sarah Miller RN 02/03/18 07:55 Normal [facility] Operative Reporton 8 Operative Report Date of Surgery: 02/03/2018 SURGEON: Shreyas Szymanski M.D. PREOPERATIVE DIAGNOSIS: Colorectal screening POSTOPERATIVE DIAGNOSIS: A 2 mm polyp at 18 cm in the rectum OPERATION: Colonoscopy to cecum with cold forceps polypectomy at 18 cm ANESTHESIA: General ANESTHESIOLOGIST: Bill Weiss Jr., D.O. ESTIMATED BLOOD LOSS: Less than 1 mL INDICATIONS AND CONSENT: The patient is a 52-year-old female who presents for colorectal screening. Indications, risks, benefits, alternatives of proceeding with colonoscopy were explained extensively to the patient including risks of bleeding, color perforation or anesthetic complications. All of her questions were answered, informed consent was obtained. PROCEDURE: The patient was brought to the Operating Room and placed in the left lateral decubitus position. Monitored anesthesia care was provided. Rectal examination was performed which revealed no masses or blood. The scope was inserted into the anal canal. Under direct visualization, it was advanced. With the aid of abdominal compression, it was advanced to the cecum where cecal markings were clearly identified. There was noted to be a good prep. Upon withdrawal of the scope, mucosal surfaces were carefully examined. There were no mass lesions or inflammatory changes. Within the sigmoid, there is some mild sigmoid diverticulosis without inflammatory changes or scarring. Within the rectum at 18 cm, there was noted to be a 2 mm sessile polyp that was removed with cold biopsy forceps with good hemostasis. The scope was retroflexed in the anal canal. There was noted to be prominent rectal veins, no significant hemorrhoidal disease. The scope was then withdrawn. The patient tolerated the procedure well and was sent to the Recovery Room in good condition. Shreyas Szymanski M.D. gls Dictated: 02/03/2018 #[id number] Typed: 02/03/2018 #[id number] cc: Roma Middleton M.D. [facility] Comment on above: Result Comment: Elec tronically Signed By: Stephon DAN, Shreyas Cornelius.br\Date and Time Signed: 02/03/18 10:37 EDT Patient Education - Texton 0 02-03-2018 Patient Education - Text Colonoscopy Care After Surgery Please read the instructions outlined below and refer to this sheet in the next few weeks. These discharge instructions provide you with general information on caring for yourself after you leave the hospital. Your doctor may also give you specific instructions. While your treatment has been planned according to the most current medical practices available, unavoidable complications occasionally occur. If you have any problems or questions after discharge, please call your doctor. ACTIVITY You may resume your regular activity, but move at a slower pace for the next 24 hours. Take frequent rest periods for the next 24 hours. Walking will help get rid of the air and reduce the bloated feeling in your abdomen (belly). No driving for 24 hours (because of the anesthesia (medicine) used during the test). You may shower. Do not sign any important legal documents or operate any machinery for 24 hours (because of the anesthesia used during the test). NUTRITION Drink plenty of fluids. You may resume your normal diet as instructed by your doctor. Begin with a light meal and progress to your normal diet. Heavy or fried foods are harder to digest and may make you feel nauseated (sick to your stomach). Avoid alcoholic beverages for 24 hours or as instructed. MEDICATIONS You may resume your normal medications unless your doctor tells you otherwise. WHAT YOU CAN EXPECT TODAY Some feelings of bloating in the abdomen. Passage of more gas than usual. Spotting of blood in your stool or on the toilet paper. FOLLOW-UP Your doctor will discuss the results of your test with you. SEEK IMMEDIATE MEDICAL ATTENTION IF: There is more than a spotting of blood in your stool. There is abdominal distention (your abdomen is swollen). There is vomiting. You have a temperature over 101.5 F. There is abdominal pain or discomfort that is severe or gets worse throughout the day. Family Medicine Colon Polyps Polyps are lumps of extra tissue growing inside the body. Polyps can grow in the large intestine (colon). Most colon polyps are noncancerous (benign). However, some colon polyps can become cancerous over time. Polyps that are larger than a pea may be harmful. To be safe, caregivers remove and test all polyps. CAUSES Polyps form when mutations in the genes cause your cells to grow and divide even though no more tissue is needed. RISK FACTORS There are a number of risk factors that can increase your chances of getting colon polyps. They include: ? Being older than 50 years. ? Family history of colon polyps or colon cancer. ? Long-term colon diseases, such as colitis or Crohn disease. ? Being overweight. ? Smoking. ? Being inactive. ? Drinking too much alcohol. SYMPTOMS Most small polyps do not cause symptoms. If symptoms are present, they may include: ? Blood in the stool. The stool may look dark red or black. ? Constipation or diarrhea that lasts longer than 1 week. DIAGNOSIS People often do not know they have polyps until their caregiver finds them during a regular checkup. Your caregiver can use 4 tests to check for polyps: ? Digital rectal exam. The caregiver wears gloves and feels inside the rectum. This test would find polyps only in the rectum. ? Barium enema. The caregiver puts a liquid called barium into your rectum before taking X-rays of your colon. Barium makes your colon look white. Polyps are dark, so they are easy to see in the X-ray pictures. ? Sigmoidoscopy. A thin, flexible tube (sigmoidoscope) is placed into your rectum. The sigmoidoscope has a light and tiny camera in it. The caregiver uses the sigmoidoscope to look at the last third of your colon. ? Colonoscopy. This test is like sigmoidoscopy, but the caregiver looks at the entire colon. This is the most common method for finding and removing polyps. TREATMENT Any polyps will be removed during a sigmoidoscopy or colonoscopy. The polyps are then tested for cancer. PREVENTION To help lower your risk of getting more colon polyps: ? Eat plenty of fruits and vegetables. Avoid eating fatty foods. ? Do not smoke. ? Avoid drinking alcohol. ? Exercise every day. ? Lose weight if recommended by your caregiver. ? Eat plenty of calcium and folate. Foods that are rich in calcium include milk, cheese, and broccoli. Foods that are rich in folate include chickpeas, kidney beans, and spinach. HOME CARE INSTRUCTIONS Keep all follow-up appointments as directed by your caregiver. You may need periodic exams to check for polyps. SEEK MEDICAL CARE IF: You notice bleeding during a bowel movement. Document Released: 03/17/2005 Document Revised: 09/12/2012 Document Reviewed: 08/30/2012 ExitCare? Patient Information ?2014 [employer]. This information is not intended to replace advice given to you by your health care provider. Make sure you discuss any questions you have with your health care provider. Normal [facility] Thyroid IIon 02-03-2018 T4 free index Calculated mass conc 6.42 ng/dL Normal 5.90-13.10 [facility] Comment on above: Performed By: #### 2 [id number], [id number], 5516829, 9498582, 0743392, 66103198, 10114169, [id number], [id number] ####[facility] [address] [place] [address] T4 mass conc 6.9 microgram/dL Normal 4.6-9.1 [facility] Comment on above: Performed By: #### 2 [id number], 0782631, 5220140, 2628152, 3869300, 67050959, 46274615, [id number], [id number] ####[facility] [address] [place] [address] T4 mass conc 37.2 % Normal 32.0-48.4 [facility] Comment on above: Performed By: #### 2 741634, 3168868, 3300082, 8726856, 3736908, 80342783, 69065440, [id number], 03684237 ####[facility] [address] [place] [address] Thyrotropin Qn 1.68 mcIU/mL Normal 0.34-5.60 [facility] Comment on above: Performed By: #### 2 144061, 9010193, 5507183, 3667405, 6136326, 23087117, 06651053, 130469364, 12548554 ####[facility] [address] [place] [address] Vitamin D 25 Hydroxyon 02-03 Calcidiol mass conc 35.7 ng/mL Normal 30.0-100.0 [facility] norm [facility] Comment on above: Result Comment: Vit walsh D deficiency has been defined as a level of serum 25-OH vitamin D less than 20 ng/mL (1,2) by the [place] of Medicine and an Endocrine Society practice guideline. The Endocrine Society further defined vitamin D insufficiency as a level between 21 and 29 ng/mL (2). 1. IOM ([place] of [place]). 2010. Dietary reference intakes for calcium and D. [place]: The National Academies Press. 2. Mikki MF, Jony NC, Bibiana SAVAGE, et al. Evaluation, treatment, and prevention of vitamin D deficiency: an Endocrine Society clinical practice guideline. JCEM. 2010; 96 (7):1911-30. Performed By: #### 2 [id number], 8808979, 4363038, 2566511, 6106834, 12690934, 31106146, [id number], 23066151 ####[facility] [address] [place] [address] eGFRon 02-03-2018 GFR/1.73 sq M predicted among blacks MDRD vol rate/area (S/P/Bld) mL/min/{1.73_m2} Normal >=59 [facility] Comment on above: Order Comment: Order added by Discern Expert. Result Comment: eGFR is race adjusted. AA=. Performed By: #### 2 789020, 6428876, 7034200, 4939488, 4728254, 72578348, 90360249, [id number], 62850675 ####[facility] [address] [place] [address] GFR/1.73 sq M predicted among non-blacks MDRD vol rate/area (S/P/Bld) mL/min/{1.73_m2} Normal >=59 [facility] Comment on above: Order Comment: Order added by Discern Expert. Result Comment: Relief Salesperson madhavi kidney disease could be indicated at eGFR's of less than 60 mL/min/1.73m2. Kidney failure is indicated at less than 15 mL/min/1.73m2. Performed By: #### 2 899353, 5710380, 5015953, 9568529, 7437033, 05181536, 58164777, [id number], [id number] ####[facility] [address] [place] [address] Encounters Encounter Date Encounter Type Care Provider Facility Start: 12-12-2021 Encounter for genera l adult medical examination without abnormal findings DR ANUJ COLEMAN [facility] Start: 12-08-2021 End: 12-09-[address] ANUJ COLEMAN Facility:[facility] Start: 12-08-2021 End: 12-09-2021 Encounter for general adult medical examination without abnormal findings DR ANUJ COLEMAN Facility:[facility] Start: 11-06-2021 End: 02-15-[address] ANTONIA VALVERDE Facility:[facility] Start: 05-18-[address] ANUJ COLEMAN Facility :[facility] Procedures Date Procedure Procedure Detail Performing Clinician Start: 02-03-2018 Anesthesia consultation Payers Date Payer Category Payer Unknown [id number] .[id number] 1966 Unknown [id number] .[id number] 1966 Unknown [id number] 1959 Self-pay [id number] 1959 Unknown [id number] Summary Purpose Family History No Family History Records FoundNo Family History Records Found Advance Directives No Advanced Directives Records FoundNo Advanced Directives Records Found Additional Source Comments INFORMATION SOURCE (unrecogn ized section and content) DATE CREATED AUTHOR 12/03/2018 [facility] DATE CREATED AUTHOR AUTHOR'S ALLEY NOE 02/15/2022 [facility] may FOR RECORDS PERTAINING TO PATIENTS WHO ARE OR HAVE BEEN ENROLLED IN A CHEMICAL DEPENDENCY/SUBSTANCEABUSE PROGRAM, SOME INFORMATION MAY BE OMITTED. This clinical summary was aggregated from multiple sources. Caution should be exercised in using it in the provision of clinical care. This summary normalizes information from multiple sources, and as a consequence, information in this document may materially change the coding, format and clinical context of patient data. In addition, data may be omitted in some cases. CLINICAL DECISIONS SHOULD BE BASED ON THE PRIMARY CLINICAL RECORDS. [facility] [employer] provides no warranty or guarantee of the accuracy or completeness of information in this document.
[2024-04-18 15:14] LABS: Basophils Percent Auto 0.3 % (0.2-2.0); Eosinophils Absolute Auto 0.1 10^3/uL (0.0-0.7); Hematocrit 43.7 % (36.0-48.0); Hemoglobin 14.3 g/dL (12.0-16.0); Immature Granulocytes Abs Auto 0.03 10^3/uL (0.00-0.03); Immature Granulocytes Pct Auto 0.4 % (0.0-0.5); Lymphocytes Absolute Auto 2.6 10^3/uL (1.2-3.8); Lymphocytes Percent Auto 36.8 % (20.5-60.0); Mean Corpuscular HGB Conc 32.7 g/dL (29.9-35.2); Mean Corpuscular Hemoglobin 30.8 pg (26.7-34.0); Mean Corpuscular Volume 94.2 fL (81.0-99.0); Mean Platelet Volume 9.8 fL (9.5-13.5); Monocytes Absolute Auto 0.5 10^3/uL (0.3-0.8); Monocytes Percent Auto 6.8 % (1.7-12.0); Neutrophils Absolute Auto 3.8 10^3/uL (1.4-6.5); Neutrophils Percent Auto 54.7 % (43.0-75.0); Platelet Count 281 10^3/uL (150-450); Red Blood Count 4.64 10^6/uL (4.20-5.40); White Blood Count 6.9 10^3/uL (4.0-11.0)
[2024-04-18 15:40] LABS: Estimated Average Glucose 91 mg/dL; Glycohemoglobin A1C 4.8 % (4.5-6.2)
[2024-04-18 15:52] LABS: Alanine Aminotransferase 13 U/L (14-59); Albumin Level 3.5 g/dL (3.4-5.0); Alkaline Phosphatase 72 U/L (46-116); Anion Gap 12.9; Aspartate Amino Transferase 12 U/L (15-37); BUN Creatinine Ratio 8.9; Bilirubin Total 0.5 mg/dL (0.2-1.0); Calcium 9.2 mg/dL (8.5-10.1); Chloride 103 mmol/L (98-107); Chol HDL Ratio 2.8; Cholesterol 195 mg/dL (<=200); Estimated GFR (African America >60 (>=60 mL/min/1.73m^2); Estimated GFR (Non-African Ame >60 (>=60 mL/min/1.73m^2); Free T3 2.28 pg/mL (2.18-3.98); Globulin 3.5 g/dL; Glucose 88 mg/dL (74-106); HDL Cholesterol 70 mg/dL (40-60); Potassium 3.9 mmol/L (3.5-5.1); Sodium 141 mmol/L (136-145); Thyroid Stimulating Hormone 1.665 uIU/mL (0.358-3.740); Triglycerides 87 mg/dL (<=150); VLDL CHOLESTEROL 17.4 mg/dL
== END 2024-04-18 14:45 | disposition home or self-care (01) ==
PROVIDERS: PCP Family Medicine; Visit Provider Family Medicine
DX: Z00.00 Encounter for general adult medical examination without abnormal findings (principal); R73.09 Other abnormal glucose; D64.9 Anemia, unspecified; E03.9 Hypothyroidism, unspecified
CPT/HCPCS: 36415; 80053; 80061; 80323; 83036; 83540; 84436; 84443; 84481; 85025

== ENCOUNTER 2025-03-08 09:49 | Outpatient (OUT) | payer OTHER, SELFPAY ==
--- OUTSIDE RECORDS SUMMARY | 2025-03-08 09:53 | XMS_ITS | Clinical Summary ---
Author Organization [facility] Address [address] [place] [address] Care Team Providers Care Public Health Educator Name Role Phone Alan Coleman MD Primary Care Provider [phone] Allergies Active Allergy Reactions Criticality Noted Date Comments Sulfamethoxazole-Trimethoprim Hives Medium 2004 Medications ZOLOFT 50 MG ORAL TAB takes 3 daily 0 03/18/2005 Active Active Problems Problem Noted Date Diagnosed Date Malignant neoplasm of breast (female), unspecifi ed site 03/18/2005 Social History Tobacco Use Types Packs/Day Years Used Date Smoking Tobacco: Never Assessed Area Deprivation Index Answer Date Wilbur rded National Score (1-100), lower number is lower ri sk Not on file 06/09/2020 State Score (1-10), lower number is lower risk N ot on file 06/09/2020 Data from: https://www.neighborhoodatlas.medicine.[facility].edu/. Last address used for calculation Not on file 06/09/2020 Comments Unknown Sex and Gender Information Value Date Recorded Sex Assigned at Not on file Legal Sex Female 7:29 AM EST Gender Identity Not on file Sexual Orientation Not on file Plan of Treatment Health Maintenance Due Date Last Done Comments Anxiety Screening 1984 Depression Screening 1984 HIV Screening 1984 Hepatitis C Screening 1984 DTaP,Tdap,Td Vaccine (1 - Tdap) 1985 Hepatitis B Vaccine (1 of 3 - 19+ 3-dose series) 09/09 Cervical Cancer Screening 09/10/[address] Colonography 09/10/2011 Cologuard (FIT-DNA) 09/10/2011 Colonoscopy 09/10/2011 Colorectal Cancer Screening 09/10/2011 Diabetes Screening 09/10/2011 Fecal Occult Blood 09/10/2011 Lipid Screening 09/10/2011 Sigmoidoscopy 09/10/2011 Pneumococcal Vaccine: 50+ (1 of 1 - PCV) 2016 Shingrix Vaccine (1 of 2) 2016 Influenza Vaccine (#1) 2025 Insurance [employer] Care Teams Public Health Educator Relationship Specialty Start Date End Date Alan Coleman MD [address] [place] [address] PCP - General 11/03/04
--- OUTSIDE RECORDS SUMMARY | 2025-03-08 09:53 | XMS_ITS | Clinical Summary ---
Author Organization [facility] Address [address] [place] [address] Care Team Providers Care Ribbon Winder Name Role Phone Unavailable Primary Care Provider Unavailabl e Social History Tobacco Use Types Packs/Day Years Used Date Smoking Tobacco: Never Assessed Comments Unknown Sex and Gender Information Value Date Recorded Sex Assigned at Not on file Legal Sex Female 2:25 PM EST Gender Identity Not on file Sexual Orientation Not on file Plan of Treatment Health Maintenance Due Date Last Done Comments HEPATITIS C VIRUS SCREENING 1966 TETANUS 1966 HIV SCREENING DISCUSSION 1981 HEP B VACCINE (1 of 3 - 19+ 3-dose series) 1985 TDAP (ADULT) 1985 CERVICAL CANCER SCREENING DISCUSSION 09/10/1987 LIPID SCREENING 2006 MAMMOGRAM SCREENING DISCUSSION 2006 COLORECTAL CANCER SCREENING DISCUSSION 09/10/2011 PNEUMOCOCCAL VACCINE SERIES (1 of 1 - PCV) 2016 ZOSTER (SHINGLES) VACCINE (1 of 2) 2016 COVID-19 VACCINE ( - season) 2025 INFLUENZA VACCINE (#1) 2025
--- OUTSIDE RECORDS SUMMARY | 2025-03-08 09:57 | XMS_ITS | CCD ---
Author Organization [facility] Care Team Providers Care Nurse Plastics Name Role Phone NICOLLE, DR ANTONIA Rivas Attending Unavailable NICOLLE, DR ANTONIA Rivas Admitting Unavailable NICOLLE, DR ANTONIA Rivas Consulting Unavailable JUN, DR LESLIE Primary Care Unavailable JUN, DR LESLIE Attending Unavailable JUN, DR LESLIE Admitting Unavailable UJN, DR LESLIE Primary Care Unavailable JUN, DR LESLIE Consulting Unavailable JUN, DR LESLIE Attending Unavailable JUN, DR LESLIE Admitting Unavailable JUN, DR LESLIE Primary Care Unavailable Allergies Allergy Classification Reported Allergen(s) Allergy Type Date of Onset Reaction(s) Facility (2 sources) Amoxicillin / Clavulanate; Translations: [Augmentin] Drug Allergy [facility] Repository (2 sources) Sulfamethoxazole / Trimethoprim; Translations: [Bactrim] Drug Allergy [facility] Repository (2 sources) Vancomycin; Translations: [vancomycin] Drug Allergy [facility] Repository (1 source) topiramate; Translations: [Topamax] Drug Allergy [facility] Repository (1 source) Vancomycin; Translations: [Vancocin] Drug Allergy [facility] Repository Results Test Name Value Interpretation Reference Range Facil ity Provider Letteron 03-06-2025 Provider Letter Provider Letter Anuj Barahona, [address] [place] [address] [place] [address] Re: BENJAMIN JENKINS Date of : [address] Barahona, Thank you for your referral. To date, we have been unsuccessful in contacting or scheduling your patient for an appointment. Please have the patient contact the office at their convenience at [phone], if they would like to schedule with one of our General Surgeons. Sincerely, [facility] General Surgery [address] [place] [address], [address] [place] [phone] Normal [facility] INSULINon 12-09-2021 Insulin 8.4 uIU/mL Normal 2.6-24.9 [facility] Comment on above: Performed By: #### C MP, TSH, T7, LIPID, LDH #### [facility] [address] [place], [place] [id number] Dr. Zain Vidal T4 LABCORPon 12-09-2021 T4 [Mass/Vol] 7.8 ug/dL Normal 4.5-12.0 [facility] Comment on above: Performed By: #### T 4LC #### [facility] [address] [place] [address] Dr. Zain Vidal CBC AUTO DIFFon 12-08-2021 BASO # 0.0 103/ul Normal 0.0-0.1 [facility] Comment on above: Performed By: #### C BC #### [facility] [address] [place] [address] Dr. Zain Vidal Basophils/100 WBC (Bld) 0.7 % Normal 0.2-2.0 [facility] Comment on above: Performed By: #### C BC #### [facility] [address] [place] [address] Dr. Zain Vidal EO # 0.1 103/ul Normal 0.0-0.7 [facility] Comment on above: Performed By: #### C BC #### [facility] [address] [place] [address] Dr. Zain Vidal Eosinophils/100 WBC (Bld) 1.3 % Normal 0.9-7.0 [facility] Comment on above: Performed By: #### C BC #### [facility] [address] [place] [address] Dr. Zain Vidal Erythrocyte distribution width (RBC) [Ratio] 13.1 % Normal 11.0-15.0 [facility] Comment on above: Performed By: #### C BC #### [facility] [address] [place] [address] Dr. Zain Vidal Hematocrit (Bld) [Volume fraction] 41.8 % Normal 36.0-48.0 [facility] Comment on above: Performed By: #### C BC #### [facility] [address] [place] [address] Dr. Zain Vidal Hemoglobin (Bld) [Mass/Vol] 13.4 g/dL Normal 12.0-16.0 [facility] Comment on above: Performed By: #### C BC #### [facility] [address] [place] [address] Dr. Zain Vidal IG # 0.01 10e3/ul Normal 0.00-0.03 [facility] Comment on above: Performed By: #### C BC #### [facility] [address] [place] [address] Dr. Zain Vidal IG % 0.2 % Normal 0.0-0.5 [facility] Comment on above: Performed By: #### C BC #### [facility] [address] [place] [address] Dr. Zain Vidal LYMPH # 2.3 103/ul Normal 1.2-3.8 [facility] Comment on above: Performed By: #### C BC #### [facility] [address] [place] [address] Dr. Zain Vidal Lymphocytes/100 WBC (Bld) 37.7 % Normal 20.5-60.0 [facility] Comment on above: Performed By: #### C BC #### [facility] [address] [place] [address] Dr. Zain Vidal MANUAL DIFF REQ NO Normal [facility] Comment on above: Performed By: #### C BC #### [facility] [address] [place] [address] Dr. Zain Vidal MCH (RBC) [Entitic mass] 29.8 pg Normal 26.7-34.0 [facility] Comment on above: Performed By: #### C BC #### [facility] [address] [place] [address] Dr. Zain Vidal MCHC (RBC) [Mass/Vol] 32.1 g/dL Normal 29.9-35.2 [facility] Comment on above: Performed By: #### C BC #### [facility] [address] [address] [address] Zain Vidal MCV (RBC) [Entitic vol] 92.9 fL Normal 81.0-99.0 [facility] Comment on above: Performed By: #### C BC #### [facility] [address] [address] [address] Zain Vidal MONO # 0.5 103/ul Normal 0.3-0.8 [facility] Comment on above: Performed By: #### C BC #### [facility] [address] [place] [address] Dr. Zain Vidal Monocytes/100 WBC (Bld) 8.0 % Normal 1.7-12.0 [facility] Comment on above: Performed By: #### C BC #### [facility] [address] [place] [address] Dr. Zain Vidal NEUT # 3.1 103/ul Normal 1.4-6.5 [facility] Comment on above: Performed By: #### C BC #### [facility] [address] [place] [address] Dr. Zain Vidal Neutrophils/100 WBC (Bld) 52.1 % Normal 43.0-75.0 [facility] Comment on above: Performed By: #### C BC #### [facility] [address] [place] [address] Dr. Zain Vidal Platelet mean volume (Bld) [Entitic vol] 9.6 fL Normal 9.5-13.5 [facility] Comment on above: Performed By: #### C BC #### [facility] [address] [place] [address] Dr. Zain Vidal PLT 268 103/ul Normal 150-450 [facility] Comment on above: Performed By: #### C BC #### [facility] [address] [place] [address] Dr. Zain Vidal RBC 4.50 106/ul Normal 4.20-5.40 [facility] Comment on above: Performed By: #### C BC #### [facility] [address] [place] [address] Dr. Zain Vidal WBC 6.0 103/ul Normal 4.0-11.0 [facility] Comment on above: Performed By: #### C BC #### [facility] [address] [place] [address] Dr. Zain Vidal FREE THYROXINE INDEX T7on FTI 2.50 Normal 1.30-4.50 [facility] Comment on above: Performed By: #### C MP, TSH, T7, LIPID, LDH #### [facility] [address] [place] [address] Dr. Zain Vidal T3U 32.0 % Normal 30.0-39.0 [facility] Comment on above: Performed By: #### C MP, TSH, T7, LIPID, LDH #### [facility] [address] [place] [address] Dr. Zain Vidal T4 [Mass/Vol] 7.80 ug/dL Normal 4.80-13.90 [facility] Comment on above: Result Comment: T4 t esting performed by [facility] Performed By: #### C MP, TSH, T7, LIPID, LDH #### [facility] [address] [place] [address] Dr. Zain Vidal GLYCOHEMOGLOBIN A1Con 2021 ADA RECOMMENDATION SEE BELOW Normal [facility] Comment on above: Result Comment: ADA RECOMMENDED LIMIT 4.0 - 6.0 ADA THERAPEUTIC TARGET < 7.0 ACTION SUGGESTED > 7.0 Performed By: #### A 1C #### [facility] [address] [place] [address] Dr. Zain Vidal Glucose [Mass/Vol] 105 mg/dL Normal [facility] Comment on above: Performed By: #### A 1C #### [facility] [address] [place] [address] Dr. Zain Vidal HbA1c (Bld) [Mass fraction] 5.3 % Normal 4.5-6.2 [facility] Comment on above: Performed By: #### A 1C #### [facility] [address] [place] [address] Dr. Zain Vidal IRONon 12-08-2021 Iron [Mass/Vol] 60.0 ug/dL Normal 50.0-170.0 [facility] Comment on above: Performed By: #### I BOB #### [facility] [address] [address] [address] Zain Vidal LDHon 12-08-2021 LDH 145 U/L Normal 81-234 [facility] Comment on above: Performed By: #### C MP, TSH, T7, LIPID, LDH #### [facility] [address] [address] [address] Zain Vidal LIPID PROFILEon 12-08-2021 CHOL-HDL RATIO NORM SEE BELOW Normal [facility] Comment on above: Result Comment: 3.3 - 4.4 LOW RISK 4.4 - 7.1 AVERAGE RISK 7.1 - 11.0 MODERATE RISK >11.0 HIGH RISK Performed By: #### C MP, TSH, T7, LIPID, LDH #### [facility] [address] [address] [address] Zain Vidal Cholesterol [Mass/Vol] 219 mg/dL Critically high <=200 [facility] Comment on above: Performed By: #### C MP, TSH, T7, LIPID, LDH #### [facility] [address] [address] [address] Zain Vidal Cholesterol in HDL [Mass/Vol] 86 mg/dL Critically high 40-60 [facility] Comment on above: Performed By: #### C MP, TSH, T7, LIPID, LDH #### [facility] [address] [address] [address] Zain Vidal Cholesterol in LDL [Mass/Vol] 119.6 mg/dL Normal [facility] Comment on above: Performed By: #### C MP, TSH, T7, LIPID, LDH #### [facility] [address] [place] [address] Dr. Zain Vidal Cholesterol.total/Cho lesterol in HDL [Mass ratio] 2.5 {ratio} Normal [facility] Comment on above: Performed By: #### C MP, TSH, T7, LIPID, LDH #### [facility] [address] [place] [address] Dr. Zain Vidal HDL NORMAL > or = 60 mg/dl - LOW CARDIOVASCULAR RISK <40 mg/dl - HIGH CARDIOVASCULAR RISK Normal [facility] Comment on above: Performed By: #### C MP, TSH, T7, LIPID, LDH #### [facility] [address] [place] [address] Dr. Zain Vidal LDL CALC NORMAL SEE BELOW Normal [facility] Comment on above: Result Comment: <100 mg/dl OPTIMAL 100 - 129 mg/dl NEAR OR ABOVE OPTIMAL 130 - 159 mg/dl BORDERLINE HIGH 160 - 189 mg/dl HIGH >190 mg/dl VERY HIGH Performed By: #### C MP, TSH, T7, LIPID, LDH #### [facility] [address] [place] [address] Dr. Zain Vidal Triglyceride [Mass/Vol] 67 mg/dL Normal <=150 [facility] Comment on above: Performed By: #### C MP, TSH, T7, LIPID, LDH #### [facility] [address] [place] [address] Dr. Zain Vidal VLDL CALC 13.4 mg/dL Normal [facility] Comment on above: Performed By: #### C MP, TSH, T7, LIPID, LDH #### [facility] [address] [place] [address] Dr. Zain Vidal OCC BLD IMMUNO SCREENon OCCULT BLOOD Negative Normal NEGATIVE [facility] Comment on above: Performed By: #### O BSCRN #### [facility] [address] [place] [address] Dr. Zain Vidal PROF 14(COMP METB)on 022 Albumin [Mass/Vol] 3.7 g/dL Normal 3.4-5.0 [facility] Comment on above: Performed By: #### C MP, TSH, T7, LIPID, LDH #### [facility] [address] [place] [address] Dr. Zain Vidal Albumin/Globulin [Mass ratio] 1.0 {ratio} Normal [facility] Comment on above: Performed By: #### C MP, TSH, T7, LIPID, LDH #### [facility] [address] [place] [address] Dr. Zain Vidal ALP [Catalytic activity/Vol] 89 U/L Normal 46-116 [facility] Comment on above: Performed By: #### C MP, TSH, T7, LIPID, LDH #### [facility] [address] [place] [address] Dr. Zain Vidal ALT [Catalytic activity/Vol] 17 U/L Normal 14-59 [facility] Comment on above: Performed By: #### C MP, TSH, T7, LIPID, LDH #### [facility] [address] [place] [address] Dr. Zain Vidal Anion gap [Moles/Vol] 12.3 mmol/L Normal [facility] Comment on above: Performed By: #### C MP, TSH, T7, LIPID, LDH #### [facility] [address] [place] [address] Dr. Zain Vidal AST [Catalytic activity/Vol] 18 U/L Normal 15-37 [facility] Comment on above: Performed By: #### C MP, TSH, T7, LIPID, LDH #### [facility] [address] [place] [address] Dr. Zain Vidal Bilirubin [Mass/Vol] 0.5 mg/dL Normal 0.2-1.0 [facility] Comment on above: Performed By: #### C MP, TSH, T7, LIPID, LDH #### [facility] [address] [place] [address] Dr. Zain Vidal Calcium [Mass/Vol] 8.7 mg/dL Normal 8.5-10.1 [facility] Comment on above: Performed By: #### C MP, TSH, T7, LIPID, LDH #### [facility] [address] [place] [address] Dr. Zain Vidal Chloride [Moles/Vol] 101 mmol/L Normal 98-107 [facility] Comment on above: Performed By: #### C MP, TSH, T7, LIPID, LDH #### [facility] [address] [place], [place] [id number] Dr. Zain Vidal CO2 [Moles/Vol] 28.5 mmol/L Normal 21.0-32.[address] [facility] Comment on above: Performed By: #### C MP, TSH, T7, LIPID, LDH #### [facility] [address] [place] [address] Dr. Zain Vidal Creatinine [Mass/Vol] 0.70 mg/dL Normal 0.55-1.02 [facility] Comment on above: Performed By: #### C MP, TSH, T7, LIPID, LDH #### [facility] [address] [place] [address] Dr. Zain Vidal EGFR-AF FRENCH >60 Normal >=[address] [facility] Comment on above: Performed By: #### C MP, TSH, T7, LIPID, LDH #### [facility] [address] [place] [address] Dr. Zain Vidal EGFR-NON AF FRENCH >60 Normal >=60 [facility] Comment on above: Performed By: #### C MP, TSH, T7, LIPID, LDH #### [facility] [address] [place] [address] Dr. Zain Vidal Globulin (S) [Mass/Vol] 3.6 g/dL Normal [facility] Comment on above: Performed By: #### C MP, TSH, T7, LIPID, LDH #### [facility] [address] [place] [address] Dr. Zain Vidal Glucose [Mass/Vol] 84 mg/dL Normal 74-106 [facility] Comment on above: Performed By: #### C MP, TSH, T7, LIPID, LDH #### [facility] [address] [place] [address] Dr. Zain Vidal Potassium [Moles/Vol] 3.8 mmol/L Normal 3.5-5.1 [facility] Comment on above: Performed By: #### C MP, TSH, T7, LIPID, LDH #### [facility] [address] [place] [address] Dr. Zain Vidal Protein [Mass/Vol] 7.3 g/dL Normal 6.4-8.2 [facility] Comment on above: Performed By: #### C MP, TSH, T7, LIPID, LDH #### [facility] [address] [place] [address] Dr. Zain Vidal Sodium [Moles/Vol] 138 mmol/L Normal 136-145 [facility] Comment on above: Performed By: #### C MP, TSH, T7, LIPID, LDH #### [facility] [address] [place] [address] Dr. Zain Vidal Urea nitrogen [Mass/Vol] 11.0 mg/dL Normal 7.0-18.0 [facility] Comment on above: Performed By: #### C MP, TSH, T7, LIPID, LDH #### [facility] [address] [place] [address] Dr. Zain Vidal Urea nitrogen/Creatinine [Mass ratio] 15.7 mg/mg Normal [facility] Comment on above: Performed By: #### C MP, TSH, T7, LIPID, LDH #### [facility] [address] [place] [address] Dr. Zain Vidal TSHon 12-08-2021 TSH 1.697 uIU/mL Normal 0.358-3.740 [facility] Comment on above: Performed By: #### C MP, TSH, T7, LIPID, LDH #### [facility] [address] [place] [address] Dr. Zain Vidal TSH RANGE SEE BELOW Normal [facility] Comment on above: Result Comment: <0.3 4 UIU/ml HYPERTHYROID 0.34-5.60 UIU/ml EUTHYROID >5.60 UIU/ml HYPOTHYROID Performed By: #### C MP, TSH, T7, LIPID, LDH #### [facility] [address] [place] [address] Dr. Zain Vidal Encounters Encounter Date Encounter Type Care Provider Facility Start: 02-22-2025 ambulatory Facility:[facility] [place] Start: 12-12-2021 Encounter for genera l adult medical examination without abnormal findings [facility] Start: 12-08-2021 End: 12-09-[address] ANUJ BARAHONA Facility:[facility] Start: 12-08-2021 End: 12-09-2021 Encounter for general adult medical examination without abnormal findings DR ANUJ BARAHONA Facility:[facility] Start: 11-06-2021 End: 02-15-[address] ANTONIA VALVERDE Facility:[facility] Start: 05-18-[address] ANUJ BARAHONA Facility :[facility] Payers Date Payer Category Payer Unknown [id number] [id number] [id number] 1965 Unknown [id number] 2.16.84 [id number] 1965 Unknown [id number] 2.16.84 [id number] 1965 Unknown [id number] 2.16.8 [id number] 1958 Self-pay [id number] 1958 Unknown [id number] Summary Purpose Family History No Family History Records FoundNo Family History Records Found Advance Directives No Advanced Directives Records FoundNo Advanced Directives Records Found Additional Source Comments INFORMATION SOURCE (unrecogn ized section and content) DATE CREATED AUTHOR 02/15/2022 [facility] DATE CREATED AUTHOR 'S ALLEY NOE 03/07/2025 [facility] FOR RECORDS PERTAINING TO PATIENTS WHO ARE [...] BE BASED ON THE PRIMARY CLINICAL RECORDS. [facility]. provides no warranty or guarantee of the accuracy or completeness of information in this document.
[2025-03-08 10:23] LABS: Hematocrit 41.7 % (36.0-48.0); Hemoglobin 13.8 g/dL (12.0-16.0); Immature Granulocytes Abs Auto 0.02 10^3/uL (0.00-0.03); Immature Granulocytes Pct Auto 0.3 % (0.0-0.5); Lymphocytes Absolute Auto 3.2 10^3/uL (1.2-3.8); Mean Corpuscular HGB Conc 33.1 g/dL (29.9-35.2); Mean Corpuscular Hemoglobin 30.9 pg (26.7-34.0); Mean Corpuscular Volume 93.5 fL (81.0-99.0); Platelet Count 244 10^3/uL (150-450); Red Blood Count 4.46 10^6/uL (4.20-5.40); White Blood Count 7.1 10^3/uL (4.0-11.0)
[2025-03-08 11:04] LABS: Alanine Aminotransferase 17 U/L (14-59); Albumin Globulin Ratio 1.0; Albumin Level 3.6 g/dL (3.4-5.0); Alkaline Phosphatase 60 U/L (46-116); Anion Gap 9.9; Aspartate Amino Transferase 15 U/L (15-37); Blood Urea Nitrogen 11.0 mg/dL (7.0-18.0); Calcium 9.0 mg/dL (8.5-10.1); Carbon Dioxide 32.1 mmol/L (21.0-32.0); Chloride 104 mmol/L (98-107); Cholesterol 216 mg/dL (<=200); Estimated GFR (African America >60 (>=60 mL/min/1.73m^2); Estimated GFR (Non-African Ame >60 (>=60 mL/min/1.73m^2); Free T3 2.75 pg/mL (2.18-3.98); Globulin 3.6 g/dL; Glucose 85 mg/dL (74-106); HDL Cholesterol 84 mg/dL (40-60); Potassium 4.0 mmol/L (3.5-5.1); Sodium 142 mmol/L (136-145); Thyroid Stimulating Hormone 2.458 uIU/mL (0.358-3.740); Total Protein 7.2 g/dL (6.4-8.2); Triglycerides 68 mg/dL (<=150); VLDL CHOLESTEROL 13.6 mg/dL
[2025-03-08 11:22] LABS: Iron 82.0 ug/dL (50.0-170.0)
== END 2025-03-08 09:50 | disposition home or self-care (01) ==
LOC: LAB 09:51
PROVIDERS: PCP Family Medicine; Visit Provider Family Medicine
DX: Z00.00 Encounter for general adult medical examination without abnormal findings (principal)
CPT/HCPCS: 36415; 80053; 80061; 80323; 82306; 83036; 83525; 83540; 84436; 84443; 84481; 85025

== ENCOUNTER 2025-05-08 13:50 | Outpatient (OUT) | payer OTHER, SELFPAY ==
--- OUTSIDE RECORDS SUMMARY | 2025-05-08 13:52 | XMS_ITS | Clinical Summary ---
Author Organization [facility] Address [address] [place] [address] Care Team Providers Care Cow Trimmer Name Role Phone Unavailable Primary Care Provider Unavailabl e Social History Tobacco UseTypesPacks/DayYears UsedDateSmoking Tobacco: Never Assessed CommentsUnknownSex and Gender InformationValueDate RecordedSex Assigned at Not on fileLegal PvmVztmqi27/03/2013 2:25 PM ESTGender IdentityNot on fileSexual OrientationNot on file Plan of Treatment Health MaintenanceDue DateLast DoneCommentsHEPATITIS C VIRUS TBAQPBCNT54/08/1967 KJRMHEP20 1966HIV SCREENING ISIBDCBAEI47/08/1982HEP B VACCINE (1 of 3 - 19+ 3-dose series)1985TDAP (ADULT)1985CERVICAL CANCER SCREENING WUCSWQSBGN93/08/1988LIPID WCCTZTOQD67/08/2007MAMMOGRAM SCREENING DISCUSSION 2006COLORECTAL CANCER SCREENING GXOIOGETCQ36/08/2012PNEUMOCOCCAL VACCINE SERIES (1 of 1 - PCV)2016ZOSTER (SHINGLES) VACCINE (1 of 2)2016 COVID-19 VACCINE ( - 2024- season)2025INFLUENZA VACCINE (#1)2025
--- OUTSIDE RECORDS SUMMARY | 2025-05-08 13:52 | XMS_ITS | Patient Health Record ---
Author Organization [facility] [place] Address [address] [place] [address] Care Team Providers Care Well Tester Name Role Phone Corbin Coleman Primary Care Provider Allergies Allergen (clinical drug ingredient) Drug/Non Drug Allergy documented on EMR Reaction Allergy Type Onset Date Status sulfamethoxazole / trimethoprim Bactrim hives/rash Drug Allergy ActivetopiramateTopamaxKidney StonesDrug AllergyActivevancomycinVancomycin hives/rashDrug AllergyActive Results Component Value Reference Range Notes CBC AUTO DIFF Reviewed date:03/08/2025 04:52:23 PM Interpretation: Performing Lab: Notes/Report: [facility] , White Blood Count 7.1 4.0-11.0 10 3/uL Red Blood Count4.464.20-5.40 10 6/gWZsqzfbpitk07.812.0-16.0 g/aLGestczedrz38.7 36.0-48.0 %Mean Corpuscular Bxhnig66.581.0-99.0 fLMean Corpuscular Hemoglobin 30.926.7-34.0 pgMean Corpuscular HGB Conc33.129.9-35.2 g/dLRed Cell Distribution Width12.511.0-15.0 %Platelet Hygcc778336-764 10 3/uLMean Platelet Volume9.49.5- 13.5 fLNeutrophils Percent Auto47.243.0-75.0 %Lymphocytes Percent Auto44.620.5- 60.0 %Monocytes Percent Auto6.11.7-12.0 %Eosinophils Percent Auto1.10.9-7.0 % Basophils Percent Auto0.70.2-2.0 %Immature Granulocytes Pct Auto0.30.0-0.5 % Neutrophils Absolute Auto3.31.4-6.5 10 3/uLLymphocytes Absolute Auto3.21.2-3.8 10 3/uLMonocytes Absolute Auto0.40.3-0.8 10 3/uLEosinophils Absolute Auto0.10.0- 0.7 10 3/uLBasophils Absolute Auto0.10.0-0.1 10 3/uLImmature Granulocytes Abs Auto0.020.00-0.03 10 3/uLPerforming Lab:see note - [facility] FREE T3 Reviewed date:03/08/2025 04:52:23 PM Interpretation: Performing Lab: Notes/Report: [facility] ,Free T32.752.18-3.98 pg/mLPerforming Lab:see [facility] GLYCOHEMOGLOBIN A1C Reviewed date:03/08/2025 04:52:23 PM Interpretation: Performing Lab: Notes/Report: [facility] ,Glycohemoglobin A1C4.64.5-6.2 % ADA RECOMMENDED LIMIT 4.0 - 6.0 > 7.0 ACTION SUGGESTED ADA THERAPEUTIC TARGET < 7.0 Estimated Average Gyvvycc94Gjukqdhrxb Lab:see [facility] INSULIN Reviewed date:03/10/2025 04:59:26 PM Interpretation: Performing Lab: Notes/Report: [facility] ,Insulin4.12.6-24.9 uIU/mL [address] [place], [place] [id number] Performed at: [facility] Traffic Manager: Adithya Hopson PhD, Phone: [phone] Performing Lab:see [facility] LBIRON Reviewed date:03/08/2025 04:52:23 PM Interpretation: Performing Lab: Notes/Report: [facility] ,Iron82.050.0-170.0 ug/dLPerforming Lab:see [facility] LBLAB TESTING Reviewed date:03/13/2025 02:41:53 PM Interpretation: Performing Lab: Notes/Report: [id number] Nicotine and Metabolite, Quantitative, Plasma, Whole Blood, [facility] ,Miscellaneous TestCOMMENT. use of tobacco or tobacco cessation products. This test was developed and its performance characteristics determined by [facility]. It has not been cleared or Performed at: [address] [phone] This test was developed and its performance characteristics Reference Range: . approved by the Food and Drug Administration. Nicotine 15.2 ng/mL BN Cotinine 268.1 ng/mL Reference Range: . [address], [place] [address] Test Ordered: 320374 Nicotine and Metabolite, Quant Performed at: [facility] Traffic Manager: Adithya Hopson PhD, Phone: [phone] Nicotine levels greater than 2.0 are consistent with the use of tobacco or tobacco cessation products. approved by the Food and Drug Administration. Cotinine levels greater than 20.0 are consistent with the Traffic Manager: Glenn Jo MD, Phone: [phone] determined by [employer]. It has not been cleared or Performing Lab:see noteLC - [facility] LBLIPID PROFILE Reviewed date:03/08/2025 04:52:23 PM Interpretation: Performing Lab: Notes/Report: [facility] ,Ppjhvgowaktmj93<=150 mg/iQXssfgdjbqhf135<=200 mg/dLHDL Enirvgksowc7456-40 mg/dL > or =60 mg/dl - LOW CARDIOVASCULAR RISK <40 mg/dl - HIGH CARDIOVASCULAR RISK LDL Cholesterol Kjwuzrtcwu641.0 100-129 mg/dl NEAR OR ABOVE OPTIMAL <100 mg/dl OPTIMAL 160-189 mg/dl HIGH 130-159 mg/dl BORDERLINE HIGH >190 mg/dl VERY HIGH VLDL YIVSDVFKKUN03.6Chol HDL Ratio2.6 >11.0 HIGH RISK 3.3 - 4.4 LOW RISK 7.1 - 11.0 MODERATE RISK 4.4 - 7.1 AVERAGE RISK Performing Lab:see noteML - [facility] LBPROF 14(COMP METB) Reviewed date:03/08/2025 04:52:23 PM Interpretation: Performing Lab: Notes/Report: [facility] ,Hitipm999526-071 mmol/LPotassium4.03.5-5.1 mmol/DKmsmzurr17741-728 mmol/LCarbon Vzwlbfr75.121.0-32.0 mmol/LAnion Gap9.6Lzyvbpk4983-622 mg/dLBlood Urea Nitrogen 11.07.0-18.0 mg/dLCreatinine0.740.55-1.02 mg/dLEstimated GFR ( Jillian>60 >=60 mL/min/1.73m 2Estimated GFR (Non- Nathalie>60>=60 mL/min/1.73m 2BUN Creatinine Ratio14.6Yehjbmx8.08.5-10.1 mg/dLBilirubin Total0.50.2-1.0 mg/dL Aspartate Amino Veknrflmchl6146-76 U/LAlanine Wrgxbbxcqwhnpcon6999-53 U/L Alkaline Mdkyqboyfun6714-870 U/LTotal Protein7.26.4-8.2 g/dLAlbumin Level3.63.4- 5.0 g/dLGlobulin3.6Albumin Globulin Ratio1.0Performing Lab:see noteML - [facility] LBT4 Reviewed date:03/08/2025 04:52:23 PM Interpretation: Performing Lab: Notes/Report: [facility] ,T4 Thyroxine8.804.80-13.90 ug/dLPerforming Lab:see noteML - [facility] LBTSH Reviewed date:03/08/2025 04:52:23 PM Interpretation: Performing Lab: Notes/Report: [facility] ,Thyroid Stimulating Hormone2.4580.358-3.740 uIU/mLPerforming Lab:see note - [facility] LBVITAMIN D 25 [place] Reviewed date:03/08/2025 04:52:23 PM Interpretation: Performing Lab: Notes/Report: [facility] ,Vitamin D49.0 20-<30 ng/mL Vit D insufficient 30-100 ng/mL Vit D sufficient >100 ng/mL Potential Toxicity <20 ng/mL Vit D deficient Performing Lab:see noteML - [facility] LB Reason For Referral Diagnosis 1 Abdominal pain (R10. 9) Referral Organization [facility] Referring Provider First Name Corbin Referring Provider Last Name Jared Referring Provider Speciality Family Med aleida Referred Provider Shreyas Szymnaski Referred Provider Specialty General Surg yobany Referral Priority Routine Medications Medication SIG (Take, Route, Frequency, Duration) Notes Start Date End Date Status Diclofenac Sodium 75 MG 1 tablet Orally Twice a day MT N ActivetiZANidine HCl 4 MG1 tablet at bedtime as needed Orally Once a day; Duration: 30 days5ActiveAspirin Adult Low Dose 81 MG1 tablet Orally Once a dayActiveMesalamine 1000 MG1 suppository at bedtime Rectal Once a day; Duration: 30 zsnoUHD07/04/2024ActiveMultivitamin -1 tablet Orally Once a day ActiveCitalopram Hydrobromide 40 MGTAKE 1 TABLET BY MOUTH EVERY DAY; Duration: 90 daysActiveoxyBUTYnin Chloride ER 5 MG1 tablet Orally Once a day; Duration: 90 daysActiveAmphetamine-Dextroamphetamine 30 MGTAKE ONE TABLET BY MOUTH ONCE DAILY FOR 30 DAYS; Duration: 5ActiveEszopiclone 2 mgTAKE ONE TABLET BY MOUTH ONCE DAILY AT BEDTIME FOR 30 DAYS; Duration: 5ActiveWegovy 2.4 MG/0.75ML0.75 mL Subcutaneous once weekly; Duration: 90 days5Active Pantoprazole Sodium 40 MG1 tablet Orally BID; Duration: 90 daysActiveVitamin D 50 MCG (1999)2 capsule Orally Once a dayActive Social History Tobacco Use: Social History Observation Description Date Details (start date - stop date) Current Smoker 07/05/1970 - NA Tobacco Use/Smoking Question Answer Notes Patient is a current smoker When did you start smoking?07/05/1970How often do you smoke cigarettes?every day Alcohol Screen (Audit-C) Question Answer Notes Did you have a drink containing alcohol in the p ast year? Yes How often did you have 6 or more drinks on one occasion in the past year?Never (0 point)How many drinks did you have on a typical day when you were drinking in the past year?1 or 2 drinks (0 point)How often did you have a drink containing alcohol in the past year?Less than monthly (1 point)Iclyft5Qtyumjvmrhvvya NegativeAUDIT-C (Standard) Question Answer Notes Did you have a drink containing alcohol in the p ast year? No Iqznsg5UqqmmiykoeihrmKybjdgdc Problems Problem Type SNOMED Code ICD Code Onset Dates Problem Status W/U Status Risk Notes Problem COPD - Chronic obstr uctive pulmonary disease (43152104) COPD (chronic obstructive pulmonary disease) (J44.9) ActiveconfirmedProblemAnxiety (63522244)Anxiety (F41.9)ActiveconfirmedProblem Vertigo (486530552)Vertigo (R42)ActiveconfirmedProblemInsomnia (184339374) Insomnia (G47.00)ActiveconfirmedProblemAttention deficit hyperactivity disorder (978534528)ADHD (attention deficit hyperactivity disorder) (F90.9)Active confirmedProblemChronic sinusitis (30014417)Chronic sinusitis (J32.9)Active confirmedProblemWell adult (548320372)Well adult (Z00.00)ActiveconfirmedProblem Ulcerative colitis (36242890)Ulcerative colitis (K51.90)ActiveconfirmedProblem Conjunctivitis (0543435)Conjunctivitis (H10.9)ActiveconfirmedProblemCrohn's disease of large bowel (5783893)Crohns colitis, unspecified complication (K50.119)ActiveconfirmedProblemAdenocarcinoma (035995615)Adenocarcinoma (C80.1) ActiveconfirmedProblemCOVID-19 (298607323)COVID-19 (U07.1)ActiveconfirmedProblem Obese class II (306694111499125)Body mass index [BMI] 35.0-35.9, adult (Z68.35) Activeconfirmed Vital Signs Temperature 98.6 degrees Fahrenheit 07/20/2024 Blood pressure qyixbznvh51 mm Hg02/22/20250809Vfvdde64.25 in02/22/2025lood pressure duiwhgrl018 mm Hg02/22/20250126Quqckt550.0 lbs02/22/2025BMI27.92 kg/m202/22/2025 Encounters Encounter Location Date Provider Diagnosis [facility] [address] [place] [address] 07/20/2024 Corbin Hoy Vertigo R42 [facility] [address] [place] [address] 02/22/2025 Corbin Hoy Well adult Z00.00 an d Abdominal pain R10.9 [facility] [address] [place] [address] 06/09/2024 Corbin [facility] [place] [address] 09/15/2024Doug [facility] [place] [address]/Doug HoyUlcerative colitis K51.90[facility] [place] [address]/Doug [facility] [place] [address]/ [facility] [place] [address] 01/02/2025Doug [address] [place] [address]/08/2024Doug [facility] [place] [address]/Doug [facility] [place] [address]/Doug [facility] [place] [address]/ [facility] [place] [address]/10/2024Doug [facility] [place] [address]/03/2025Doug [facility] [place] [address]/03/2025Doug [facility] [place] [address]/Doug Andreea adult Z00.00[facility] [place] [address]/Doug HoyWell adult Z00.00[facility] [address] [place] [address]/28/2025Doug Jared Assessments Encounter Date Diagnosis (ICD Code) Assessment Notes Treatment Notes Treatment Clinical Notes Section Notes 07/20/2024 Vertigo (ICD-10 - R42) 02/22/2025bdominal pain (ICD-10 - R10.9)02/22/2025Well adult (ICD-10 - Z00.00) 09/15/2024Ulcerative colitis (ICD-10 - K51.90)01/02/2025Vertigo (ICD-10 - R42) 03/20/2025Well adult (ICD-10 - Z00.00)04/18/2025Well adult (ICD-10 - Z00.00) Plan Of Treatment Pending Test Test Name Order Date CMP (COMPLETE METABOLIC PANEL) 3 CMP (COMPLETE METABOLIC PANEL) 4 HEMOGLOBIN A1C (GLYCO) 12/30/2022 HEMOGLOBIN A1C (GLYCO) 04/10/2024 HEMOGLOBIN A1C (GLYCO) 02/22/2025 IRON, TOTAL 02/22/2025 IRON, TOTAL 04/10/2024 IRON, TOTAL 12/30/2022 LIPID PANEL (CHOL/TRIG/HDL/LDL) 12/31/19 23 LIPID PANEL (CHOL/TRIG/HDL/LDL) 02/23/20 25 LIPID PANEL (CHOL/TRIG/HDL/LDL) 04/10/20 24 CBC WITH DIFF 04/10/2024 CBC WITH DIFF 12/30/2022 VITAMIN D, 25 LEVEL (TOTAL) 02/22/2025 Insulin Level 02/22/2025 NICOTINE METABOLITES 02/22/2025 NICOTINE METABOLITES 12/30/2022 NICOTINE METABOLITES 04/10/2024 THYROID PANEL (T4/TSH/FREE T3) 4 THYROID PANEL (T4/TSH/FREE T3) 3 THYROID PANEL (T4/TSH/FREE T3) 5 CT angio neck 04/10/2024 CT sinus wo con 02/11/2024 CT CHEST LOW DOSE (LDCT) 02/22/2025 CT CHEST LOW DOSE (LDCT) 04/10/2024 CT CHEST LOW DOSE (LDCT) 01/24/2024 CMP (COMP MET PRADO) w/eGFR CKD-EPI 2024 CBC WITH DIFF 02/22/2025 Insurance Providers Payer Name Payer Address Payer Phone Subscriber Number Group Number Insured Name Patient Relationship to Insured Coverage Start Date Coverage End Date MMO [employer] [address] [place] [address] [id number] Viridiana Butler Self - patient is the insured Medical (General) History Medical History History ICD Code Adenocarcinoma of breast C50.919 ADHD F90.9 Anxiety F41.9 Crohns disease K50.90 Insomnia G47.00 Ulcerative colitis K51.90 Miscarriage O03.9 Well adult Z00.00 ADHD (attention deficit hyperactivity di sorder) F90.9 Crohns colitis, unspecified complication K50.119 Adenocarcinoma C80.1 Surgical History Surgery Date(Month/Year) Rt Extracorporeal Shockwave Lithotripsy CholecystectomyThyroglossal Duct Cyst- removal as childBilateral MastectomyOvary Removed- cyst explodedCataract Right Eye- Lens placement08/2024Hospitalization History Reason Date(Month/Year) see above
--- OUTSIDE RECORDS SUMMARY | 2025-05-08 13:52 | XMS_ITS | Clinical Summary ---
Author Organization [facility] Address [address] [place], [place] [address] Care Team Providers Care Bag Tester Name Role Phone Alan Coleman MD Primary Care Provider [phone] Allergies Active AllergyReactionsCriticalityNoted DateComments Sulfamethoxazole-YjjqtyxlvuovJldbcGtflxq17/14/2005 Medications MedicationSigDispense QuantityRefillsLast FilledStart DateEnd DateStatus ZOLOFT 50 MG ORAL TAB takes 3 eeblo384Active Active Problems ProblemNoted DateDiagnosed DateMalignant neoplasm of breast (female), unspecified site03/18/2005 Social History Tobacco UseTypesPacks/DayYears UsedDateSmoking Tobacco: Never AssessedArea Deprivation IndexAnswerDate RecordedNational Score (1-100), lower number is lower riskNot on file06/09/2020State Score (1-10), lower number is lower riskNot on file06/09/2020Data from: https://www.neighborhoodatlas.medicine.[facility].edu/. Last address used for calculationNot on file06/09/2020CommentsUnknownSex and Gender InformationValueDate RecordedSex Assigned at BirthNot on fileLegal VquUckvhg84/02/2012 7:29 AM ESTGender IdentityNot on fileSexual OrientationNot on file Plan of Treatment Health MaintenanceDue DateLast DoneCommentsAnxiety Iedpgewio46/08/1985Depression Teywgnplk44/08/1985HIV Kvcghlekr37/08/1985Hepatitis C Knamazwty78/08/1985 DTaP,Tdap,Td Vaccine (1 - Tdap)1985Hepatitis B Vaccine (1 of 3 - 19+ 3- dose series)1985Cervical Cancer Lcvtypdhf36/08/1988Mammogram Screening 2006CT Fdctajcwqlnq26/08/2012Cologuard (FIT-DNA)09/10/2011Colonoscopy 09/10/2011Colorectal Cancer Aqlosopkv68/08/2012Diabetes Bqqsdxkhm01/08/2012Fecal Occult Blood09/10/2011Lipid Vaxyzjumi61/08/9338Jlmvetprkrosf00/08/2012 Pneumococcal Vaccine: 50+ (1 of 1 - PCV)2016Shingrix Vaccine (1 of 2) 2016Covid-19 Vaccine (1 - 2024- season)2025Influenza Vaccine (#1) 2025 Insurance Care Teams Team MemberRelationshipSpecialtyStart DateEnd Alan Coleman MD [address] [place] [address] [facility]11/03/04
--- OUTSIDE RECORDS SUMMARY | 2025-05-08 13:52 | XMS_ITS | Clinical Summary ---
Author Organization [facility] Address [address] [place] [address] Care Team Providers Care Licensing Analyst Name Role Phone Unavailable Primary Care Provider Unavailabl e Social History Tobacco UseTypesPacks/DayYears UsedDateSmoking Tobacco: Never Assessed CommentsUnknownSex and Gender InformationValueDate RecordedSex Assigned at Not on fileLegal NorZmphay04/15/2023 6:42 PM EDTGender IdentityNot on fileSexual OrientationNot on file Plan of Treatment Not on file
== END 2025-05-08 13:51 | disposition home or self-care (01) ==
LOC: PST 13:50
PROVIDERS: PCP Family Medicine; Visit Provider Surgery
DX: Z01.818 Encounter for other preprocedural examination (principal); R10.32 Left lower quadrant pain; Z86.0101 Personal history of adenomatous and serrated colon polyps

== ENCOUNTER 2025-05-16 08:27 | Day surgery (SDC) | payer OTHER, SELFPAY ==
--- OUTSIDE RECORDS SUMMARY | 2025-05-01 22:59 | XMS_ITS | Continuity of Care Document ---
Author Organization [facility] [place] Address [address] [address] Care Team Providers Care Slunk Skinner Name Role Phone Alan Coleman Primary Care Physician [phone] Encounter FT_AMBFIN [id number] Date(s): 05/01/25 - 05/01/25 [facility] [place] [address] [facility] [address], [place], [place] [address] Encounter Diagnosis Hematochezia(Discharge Diagnosis) - 05/01/25 Rectal bleeding(Discharge Diagnosis) - 05/01/25 History of ulcerative colitis(Discharge Diagnosis) - 05/01/25 Abdominal pain, left lower quadrant(Discharge Diagnosis) - 05/01/25 Discharge Disposition: Home (Routine DC) Attending Physician: Shreyas KENT MD Referring Physician: Alan Coleman MD Encounter Type: Clinic Allergies, Adverse Reactions, Alerts SubstanceCriticalitySeverityReactionReaction SeverityStatusvancomycinHivesActive Topamaxcaused kidney stonesActiveAugmentinDiarrheaActiveBactrimHivesActive Immunizations Given and Recorded VaccineDateStatusRefusal UmhijqIJGM-WkU-3 (COVID-19) mRNAMUL.ORD![id number]/ WskfhxucCJNS-BoF-2 (COVID-19) mRNA-1273 /05WokwuhfuYOYE-QyX-5 (COVID-19) mRNA BNT-162b2 vax3/91BvdovqqvAAGP-JpE-9 (COVID-19) mRNA BNT- 162b2 vax41Recorded 1Result Comment: 2025-04-18: TPV50 2Result Comment: 2025-04-18: TPV50 3Result Comment: 2025-04-18: TPV50 4Result Comment: 2025-04-18: TPV50 Medications Adderall 30 mg oral tablet 30 mg, 1 tab(s), Oral, Daily, Refill(s) 0, Other (see comment) Start Date: 04/12/17 Status: Ordered Medication Dispense Status: Completed Total Allowed Fills: 1 Fills Dispensed: 0 aspirin 81 mg, Oral, Daily, Refills(s) 0, Prophylaxis Start Date: 02/02/18 Status: Ordered Medication Dispense Status: Completed Total Allowed Fills: 1 Fills Dispensed: 0 CeleXA 40 mg Tab 40 mg = 1 tab(s), Oral, Daily, Refills(s) 0, Depression Start Date: 06/17/15 Status: Ordered Medication Dispense Status: Completed Total Allowed Fills: 1 Fills Dispensed: 0 diclofenac sodium 75 mg Oral EC Tab 75 mg = 1 tab(s), Oral, BID, Refills(s) 0 Start Date: 04/18/25 Status: Ordered Medication Dispense Status: Completed Total Allowed Fills: 1 Fills Dispensed: 0 Lunesta 2 mg Tab 2 mg = 1 tab(s), Oral, Once a day (at bedtime), PRN for insomnia, Refills(s) 0 Start Date: 04/18/25 Status: Ordered Medication Dispense Status: Completed Total Allowed Fills: 1 Fills Dispensed: 0 mesalamine 1000 mg Supp 1,000 mg = 1 supp, Rectal, Once a day (at bedtime), Refills(s) 0 Start Date: 04/18/25 Status: Ordered Medication Dispense Status: Completed Total Allowed Fills: 1 Fills Dispensed: 0 Multivitamins and Minerals 1 tab, Oral, Daily, Refill(s) 0, Prophylaxis Start Date: 02/08/12 Status: Ordered Medication Dispense Status: Completed Total Allowed Fills: 1 Fills Dispensed: 0 oxybutynin 5 mg ER Tab 5 mg = 1 tab(s), Oral, Daily, Refills(s) 0 Start Date: 04/18/25 Status: Ordered Medication Dispense Status: Completed Total Allowed Fills: 1 Fills Dispensed: 0 Protonix 40 mg Tab-DR 40 mg = 1 tab(s), Oral, BID, Refills(s) 0 Start Date: 04/18/25 Status: Ordered Medication Dispense Status: Completed Total Allowed Fills: 1 Fills Dispensed: 0 Vitamin D2 2000 intl units oral capsule 50 mcg = 1 cap(s), Oral, Daily, cap(s), Refills(s) 0 Start Date: 04/18/25 Status: Ordered Medication Dispense Status: Completed Total Allowed Fills: 1 Fills Dispensed: 0 Wegovy Pen 2.4 mg/0.75 mL subcutaneous solution 2.4 mg, SubCutaneous, qWeek, Refills(s) 0 Start Date: 04/18/25 Status: Ordered Medication Dispense Status: Completed Total Allowed Fills: 1 Fills Dispensed: 0 Problem List ConditionConfirmationCourseEffective DatesStatusHealth StatusInformantAnxiety ConfirmedActiveADHD (attention deficit hyperactivity disorder)ConfirmedActive Breast cancerConfirmedActiveBunion of great toe of right footConfirmedActive Chronic obstructive pulmonary diseaseConfirmedActiveEx-smokerConfirmedActiveAcid refluxConfirmedActiveGERD (gastroesophageal reflux disease)ConfirmedActive History of depressionConfirmedActiveHistory of ulcerative colitisConfirmedActive HematocheziaConfirmedActiveIBS (irritable bowel syndrome)ConfirmedActiveKidney stoneConfirmedResolvedAbdominal pain, left lower quadrantConfirmedActive MenopauseConfirmedActiveOverweightConfirmedActiveBMI 28.0-28.9,adultConfirmed ActiveRectal jcinoidwFfmqpkiycBcszwhZtteoq4Pdrhmdnni< 2004ResolvedBladder spasm ConfirmedActive 1Added secondary to documentation in Social History. Procedures ProcedureDateRelated DiagnosisBody CpjtTbmjsbEjrmseavjbj60/2018Completed Yirtlgkayvl93/5/18CompletedESWL - Extracorporeal shockwave lithotripsy of ureteric /8/17Completedright cnpexcoqyrec84/24/15CompletedBilateral mastectomyCompletedBreast reconstructionCompletedExcision of thyroglossal duct cystCompletedLaparoscopic cholecystectomyCompletedLithotripsyCompletedlymph node removalCompletedRight oophorectomyCompleted 1rt eswl 2RIGHT ESWL // RIGHT CYSTO RETROGRADE // RIGHT URETEROSCOPY // RIGHT STENT PLACEMENT and stone retreival Social History Social History TypeResponseSmoking Trqhsm55 or more cigarettes (1/2 pack or more)/day in last 30 days;Never; Type: Cigarettes; Smoking Cessation Yes; Tobacco use per day: 0.5; Started at age: [age]; entered on: 05/01/25Birth SexFemaleSex RepresentationFemale (finding) Patient Care team information Care Team Personnel Name: Alan Coleman MD Position: FT Physician Member Role: Primary Care Physician Address: [address] [place] [address] Telecom: Care Team Related Persons Name: CHRISSY SEO Name: KACIE MESSER Name: NISHANT MOSELEY Insurance Providers Guarantor name: BENJAMIN Wu [facility] Plan Information #: 1 Payer: [employer] Payer Identifier: [id number] Member Number: [id number] Group Number: [id number] Subscriber Identifier: [id number] Relationship to Subscriber: self Coverage Type: PRIVATE HEALTH INSURANCE Coverage Verification Date: 25 Telecom: [phone] Address: [facility] [address] [place] [address]
--- NOTE | 2025-05-16 | OP_ITS ---
OPERATION DATE: 05/16/2025 PREOPERATIVE DIAGNOSIS: Left lower quadrant abdominal pain, hematochezia, history of ulcerative colitis. POSTOPERATIVE DIAGNOSIS: Redundant colon with spasm, as well as mild sigmoid and rectal inflammation, prominent rectal veins. PROCEDURE: Colonoscopy to cecum with sigmoid and rectal biopsies with cold biopsy forceps. SURGEON: Shreyas Szymanski M.D. ANESTHESIA: Monitored anesthesia care. INDICATIONS AND CONSENT: Patient is a 59-year-old female, with history of intermittent left lower quadrant abdominal pain, hematochezia, as well as remote history of ulcerative colitis. Indications, risks, benefits, alternatives of proceeding with colonoscopy were explained extensively to the patient, including the risks of bleeding, colon perforation or anesthetic complications. All of her questions were answered. Informed consent was obtained. PROCEDURE: Patient brought to the operating room, placed in the left lateral decubitus position. Monitored anesthesia care was provided. Rectal exam was performed which showed no masses or blood. The scope was then inserted into the anal canal. Under direct visualization was advanced. With the aid of abdominal compression, it was advanced to the cecum where cecal markings were clearly identified. Upon withdrawal of the scope, mucosal surfaces were carefully examined. There were no mass lesions or polyps. There was redundancy of the colon, as well as spasm. Within the sigmoid colon, there was some mild inflammation that was biopsied with cold biopsy forceps, as well as in the rectum, with good hemostasis. The scope was retroflexed in the anal canal. There were some prominent rectal veins. No significant hemorrhoidal disease. The scope was then withdrawn. Patient tolerated procedure well, was sent to recovery room in good condition. Follow up colonoscopy likely in five years, but will depend on Pathology report. CC: Alan Coleman M.D. SIMONE
--- OUTSIDE RECORDS SUMMARY | 2025-05-16 08:32 | XMS_ITS | Patient Health Record ---
Author Organization [facility] in [place] Address [address] [place] [address] Care Team Providers Care News Reporter Name Role Phone Corbin Coleman Primary Care Provider Allergies Allergen (clinical drug ingredient) Drug/Non Drug Allergy documented on EMR Reaction Allergy Type Onset Date Status sulfamethoxazole / trimethoprim Bactrim hives/rash Drug Allergy ActivetopiramateTopamaxKidney StonesDrug AllergyActivevancomycinVancomycin hives/rashDrug AllergyActive Results Component Value Reference Range Notes CBC AUTO DIFF Reviewed date:03/08/2025 04:52:23 PM Interpretation: Performing Lab: Notes/Report: [facility] , White Blood Count 7.1 4.0-11.0 10 3/uL Red Blood Count4.464.20-5.40 10 6/lFUuzaomwajm02.812.0-16.0 g/xNIvvzuyhzzo97.7 36.0-48.0 %Mean Corpuscular Uxgfve74.581.0-99.0 fLMean Corpuscular Hemoglobin 30.926.7-34.0 pgMean Corpuscular HGB Conc33.129.9-35.2 g/dLRed Cell Distribution Width12.511.0-15.0 %Platelet Xdvyr300576-220 10 3/uLMean Platelet Volume9.49.5- 13.5 fLNeutrophils Percent Auto47.243.0-75.0 %Lymphocytes Percent Auto44.620.5- 60.0 %Monocytes Percent Auto6.11.7-12.0 %Eosinophils Percent Auto1.10.9-7.0 % Basophils Percent Auto0.70.2-2.0 %Immature Granulocytes Pct Auto0.30.0-0.5 % Neutrophils Absolute Auto3.31.4-6.5 10 3/uLLymphocytes Absolute Auto3.21.2-3.8 10 3/uLMonocytes Absolute Auto0.40.3-0.8 10 3/uLEosinophils Absolute Auto0.10.0- 0.7 10 3/uLBasophils Absolute Auto0.10.0-0.1 10 3/uLImmature Granulocytes Abs Auto0.020.00-0.03 10 3/uLPerforming Lab:see note - [facility] FREE T3 Reviewed date:03/08/2025 04:52:23 PM Interpretation: Performing Lab: Notes/Report: [facility] ,Free T32.752.18-3.98 pg/mLPerforming Lab:see [facility] GLYCOHEMOGLOBIN A1C Reviewed date:03/08/2025 04:52:23 PM Interpretation: Performing Lab: Notes/Report: [facility] ,Glycohemoglobin A1C4.64.5-6.2 % ADA RECOMMENDED LIMIT 4.0 - 6.0 > 7.0 ACTION SUGGESTED ADA THERAPEUTIC TARGET < 7.0 Estimated Average Yaeraxj16Igktvcfbkf Lab:see [facility] INSULIN Reviewed date:03/10/2025 04:59:26 PM Interpretation: Performing Lab: Notes/Report: [facility] ,Insulin4.12.6-24.9 uIU/mL [address] [place], [place] [phone] Performed at: [facility] Composition Professor: Adithya Hopson PhD, Phone: [phone] Performing Lab:[facility] LBIRON Reviewed date:03/08/2025 04:52:23 PM Interpretation: Performing Lab: Notes/Report: [facility] ,Iron82.050.0-170.0 ug/dLPerforming Lab:see [facility] LBLAB TESTING Reviewed date:03/13/2025 02:41:53 PM Interpretation: Performing Lab: Notes/Report: [id number] Nicotine and Metabolite, Quantitative, Plasma, Whole Blood, [facility] ,Miscellaneous TestCOMMENT. use of tobacco or tobacco cessation products. This test was developed and its performance characteristics determined by [facility]. It has not been cleared or Performed at: [address] [phone] This test was developed and its performance characteristics Reference Range: . approved by the Food and Drug Administration. Nicotine 15.2 ng/mL BN Cotinine 268.1 ng/mL Reference Range: . [address], [place] [address] Test Ordered: [id number] Nicotine and Metabolite, Quant Performed at: [facility] Composition Professor: Adithya Hopson PhD, Phone: [phone] Nicotine levels greater than 2.0 are consistent with the use of tobacco or tobacco cessation products. approved by the Food and Drug Administration. Cotinine levels greater than 20.0 are consistent with the Composition Professor: Glenn Jo MD, Phone: [phone] determined by [facility]. It has not been cleared or Performing Lab:see noteLC - [facility] LBLIPID PROFILE Reviewed date:03/08/2025 04:52:23 PM Interpretation: Performing Lab: Notes/Report: [facility] ,Bgkyhbwngvmff88<=150 mg/qCJweqtumlmwb397<=200 mg/dLHDL Lioisnolsck3698-77 mg/dL > or =60 mg/dl - LOW CARDIOVASCULAR RISK <40 mg/dl - HIGH CARDIOVASCULAR RISK LDL Cholesterol Oacdslgkxy237.0 100-129 mg/dl NEAR OR ABOVE OPTIMAL <100 mg/dl OPTIMAL 160-189 mg/dl HIGH 130-159 mg/dl BORDERLINE HIGH >190 mg/dl VERY HIGH VLDL GKSMZCFOBTL52.6Chol HDL Ratio2.6 >11.0 HIGH RISK 3.3 - 4.4 LOW RISK 7.1 - 11.0 MODERATE RISK 4.4 - 7.1 AVERAGE RISK Performing Lab:see noteML - [facility] LBPROF 14(COMP METB) Reviewed date:03/08/2025 04:52:23 PM Interpretation: Performing Lab: Notes/Report: [facility] ,Fomris110236-943 mmol/LPotassium4.03.5-5.1 mmol/SLtsjgfpk25442-452 mmol/LCarbon Fgbtfvv31.121.0-32.0 mmol/LAnion Gap9.2Rglfvbp8089-893 mg/dLBlood Urea Nitrogen 11.07.0-18.0 mg/dLCreatinine0.740.55-1.02 mg/dLEstimated GFR ( Jillian>60 >=60 mL/min/1.73m 2Estimated GFR (Non- Nathalie>60>=60 mL/min/1.73m 2BUN Creatinine Ratio14.9Iaqxfol7.08.5-10.1 mg/dLBilirubin Total0.50.2-1.0 mg/dL Aspartate Amino Dvkaiwcmpzt4653-34 U/LAlanine Vvutmgpksgvcrshl3739-60 U/L Alkaline Fqlvweyrghi6174-351 U/LTotal Protein7.26.4-8.2 g/dLAlbumin Level3.63.4- 5.0 g/dLGlobulin3.6Albumin Globulin Ratio1.0Performing Lab:see noteML - [facility] LBT4 Reviewed date:03/08/2025 04:52:23 PM Interpretation: Performing Lab: Notes/Report: [facility] ,T4 Thyroxine8.804.80-13.90 ug/dLPerforming Lab:see noteML - [facility] LBTSH Reviewed date:03/08/2025 04:52:23 PM Interpretation: Performing Lab: Notes/Report: [facility] ,Thyroid Stimulating Hormone2.4580.358-3.740 uIU/mLPerforming Lab:see note - [facility] LBVITAMIN D 25 [place] Reviewed date:03/08/2025 04:52:23 PM Interpretation: Performing Lab: Notes/Report: [facility] ,Vitamin D49.0 20-<30 ng/mL Vit D insufficient 30-100 ng/mL Vit D sufficient >100 ng/mL Potential Toxicity <20 ng/mL Vit D deficient Performing Lab:see noteML - [facility] LB Reason For Referral Diagnosis 1 Abdominal pain (R10. 9) Referral Organization [facility] [place] Referring Provider First Name Corbin Referring Provider Last Name Jared Referring Provider Speciality Family Med aleida Referred Provider Shreyas Szymanski Referred Provider Specialty General Surg yobany Referral Priority Routine Medications Medication SIG (Take, Route, Frequency, Duration) Notes Start Date End Date Status Diclofenac Sodium 75 MG 1 tablet Orally Twice a day PA N ActivetiZANidine HCl 4 MG1 tablet at bedtime as needed Orally Once a day; Duration: 30 days5ActiveAspirin Adult Low Dose 81 MG1 tablet Orally Once a dayActiveMesalamine 1000 MG1 suppository at bedtime Rectal Once a day; Duration: 30 jsiwKNH27/04/2024ActiveMultivitamin -1 tablet Orally Once a day ActiveCitalopram [...] in the past year?Less than monthly (1 point)Fvbxdq1Dwetqsgiaffies NegativeAUDIT-C (Standard) Question Answer Notes Did you have a drink containing alcohol in the p ast year? No Ftelgt8WkrolgtovlcyxjVtuanvon Problems Problem Type SNOMED Code ICD Code Onset Dates Problem Status W/U Status Risk Notes Problem COPD - Chronic obstr uctive pulmonary disease (89886302) COPD (chronic obstructive pulmonary disease) (J44.9) ActiveconfirmedProblemAnxiety (23047051)Anxiety (F41.9)ActiveconfirmedProblem Vertigo (119821192)Vertigo (R42)ActiveconfirmedProblemInsomnia (235503407) Insomnia (G47.00)ActiveconfirmedProblemAttention deficit hyperactivity disorder (174047553)ADHD (attention deficit hyperactivity disorder) (F90.9)Active confirmedProblemChronic sinusitis (70819303)Chronic sinusitis (J32.9)Active confirmedProblemWell adult (243778497)Well adult (Z00.00)ActiveconfirmedProblem Ulcerative colitis (87791268)Ulcerative colitis (K51.90)ActiveconfirmedProblem Conjunctivitis (7534701)Conjunctivitis (H10.9)ActiveconfirmedProblemCrohn's disease of large bowel (0674624)Crohns colitis, unspecified complication (K50.119)ActiveconfirmedProblemAdenocarcinoma (030494338)Adenocarcinoma (C80.1) ActiveconfirmedProblemCOVID-19 (778113453)COVID-19 (U07.1)ActiveconfirmedProblem Obese class II (899852854506491)Body mass index [BMI] 35.0-35.9, adult (Z68.35) Activeconfirmed Vital Signs Temperature 98.6 degrees Fahrenheit 07/20/2024 Blood pressure irxmkxkwm43 mm Hg02/22/20253719Ludnaa01.25 in02/22/2025lood pressure fivdeadv286 mm Hg02/22/20255547Hdjbzn638.0 lbs02/22/2025BMI27.92 kg/m202/22/2025 Encounters Encounter Location Date Provider Diagnosis [facility] [address] [place] [address] 07/20/2024 Corbin Hoy Vertigo R42 [facility] [address] [place] [address] 02/22/2025 Corbin Hoy Well adult Z00.00 an d Abdominal pain R10.9 [facility] [address] [place] [address] 06/09/2024 Corbin [facility] [place] [address] 09/15/2024Doug [facility] [place] [address]/Doug HoyUlcerative colitis K51.90[facility] [place] [address]/Doug [facility] [place] [address]/ [facility] [place] [address] 01/02/2025Doug [address] [place] [address]/08/2024Doug [facility] [place] [address]/Doug [facility] [place] [address]/[facility] [place] [address]/ [facility] [place] [address]/10/2024Doug [facility] [place] [address]/03/2025Doug [facility] [place] [address]/03/2025Doug [facility] [place] [address]/Doug Andreea adult Z00.00[facility] [place] [address]/Doug HoyWell adult Z00.00[facility] [address] [place] [address]/28/2025Doug Jared Assessments Encounter Date Diagnosis (ICD Code) Assessment Notes Treatment Notes Treatment Clinical Notes Section Notes 07/20/2024 Vertigo (ICD-10 - R42) 02/22/2025Well adult (ICD-10 - Z00.00)02/22/2025bdominal pain (ICD-10 - R10.9) 09/15/2024Ulcerative colitis (ICD-10 - K51.90)01/02/2025Vertigo (ICD-10 - [...] End Date [employer] [address] [place] [address] [phone] Viridiana Butler Self - patient is the [...]
--- OUTSIDE RECORDS SUMMARY | 2025-05-16 08:32 | XMS_ITS | Clinical Summary ---
Author Organization [facility] Address [address] [place] [address] Care Team Providers Care Terry Cloth Cutter Hand Name Role Phone Unavailable Primary Care Provider Unavailabl e Social History Tobacco UseTypesPacks/DayYears UsedDateSmoking Tobacco: Never Assessed CommentsUnknownSex and Gender InformationValueDate RecordedSex Assigned at Not on fileLegal WrqRrnzph78/03/2013 2:25 PM ESTGender IdentityNot on fileSexual OrientationNot on file Plan of Treatment Health MaintenanceDue DateLast DoneCommentsHEPATITIS C VIRUS HVXZYMPQB76/08/1967 MEEDNOS75 1966HIV SCREENING UNKRURNFEX33/08/1982HEP B VACCINE (1 of 3 - 19+ 3-dose series)1985TDAP (ADULT)1985CERVICAL CANCER SCREENING XMUUVEHHFJ14/08/1988LIPID NTVFCTXOW20/08/2007MAMMOGRAM SCREENING DISCUSSION 2006COLORECTAL CANCER SCREENING ZFDLCELUTY15/08/2012PNEUMOCOCCAL VACCINE SERIES (1 of 1 - PCV)2016ZOSTER (SHINGLES) VACCINE (1 of 2)2016 COVID-19 VACCINE (1 - 2024- season)2025INFLUENZA VACCINE (#1)2025
--- OUTSIDE RECORDS SUMMARY | 2025-05-16 08:32 | XMS_ITS | Clinical Summary ---
Author Organization [facility] Address [address] [place] [address] Care Team Providers Care Continuous Improvement Director Name Role Phone Unavailable Primary Care Provider Unavailabl e Social History Tobacco UseTypesPacks/DayYears UsedDateSmoking Tobacco: Never Assessed CommentsUnknownSex and Gender InformationValueDate RecordedSex Assigned at Not on fileLegal TsrMinqhk07/15/2023 6:42 PM EDTGender IdentityNot on fileSexual OrientationNot on file Plan of Treatment Not on file
--- OUTSIDE RECORDS SUMMARY | 2025-05-16 08:32 | XMS_ITS | Clinical Summary ---
Author Organization [facility] Address [address] [place], [place] [address] Care Team Providers Care Court Bailiff Name Role Phone Alan Coleman MD Primary Care Provider [phone] Allergies Active AllergyReactionsCriticalityNoted DateComments Sulfamethoxazole-IheobymtecmaGoprnOhhglv96/14/2005 Medications MedicationSigDispense QuantityRefillsLast FilledStart DateEnd DateStatus ZOLOFT 50 MG ORAL TAB takes 3 xublo487Active Active Problems ProblemNoted DateDiagnosed DateMalignant neoplasm of breast (female), unspecified site03/18/2005 Social History Tobacco UseTypesPacks/DayYears UsedDateSmoking Tobacco: Never AssessedArea Deprivation IndexAnswerDate RecordedNational Score (1-100), lower number is lower riskNot on file06/09/2020State Score (1-10), lower number is lower riskNot on file06/09/2020Data from: https://www.neighborhoodatlas.medicine.[facility].edu/. Last address used for calculationNot on file06/09/2020CommentsUnknownSex and Gender InformationValueDate RecordedSex Assigned at BirthNot on fileLegal GtaQndqhp57/02/2012 7:29 AM ESTGender IdentityNot on fileSexual OrientationNot on file Plan of Treatment Health MaintenanceDue DateLast DoneCommentsAnxiety Eojnmtqex80/08/1985Depression Npjgipdyw19/08/1985HIV Zqdhbcykj84/08/1985Hepatitis C Rmqwdzsrg18/08/1985 DTaP,Tdap,Td Vaccine (1 - Tdap)1985Hepatitis B Vaccine (1 of 3 - 19+ 3- dose series)1985Cervical Cancer Kwwcdiqry52/08/1988Mammogram Screening 2006CT Ssgoicihvxqm00/08/2012Cologuard (FIT-DNA)09/10/2011Colonoscopy 09/10/2011Colorectal Cancer Zjlfldhkc04/08/2012Diabetes Hjbpuyyob02/08/2012Fecal Occult Blood09/10/2011Lipid Bidwfutcp73/08/9898Qbrzyzsbgkfue05/08/2012 Pneumococcal Vaccine: 50+ (1 of 1 - PCV)2016Shingrix Vaccine (1 of 2) 2016Covid-19 Vaccine (1 - 2024- season)2025Influenza Vaccine (#1) 2025 Insurance Care Teams Team MemberRelationshipSpecialtyStart DateEnd Alan Coleman MD [address] [place] [address] [facility]11/03/04
--- OUTSIDE RECORDS SUMMARY | 2025-05-16 08:34 | XMS_ITS | CCD ---
Author Organization [facility] Care Team Providers Care Second Cutter Name Role Phone NICOLLE, DR ANTONIA Rivas [...] Unavailable JUN, DR LESLIE Primary Care Unavailable Shreyas KENT Attending Anuj King Referring Unavailable Anuj Coleman Primary Care Physician Allergies Allergy ClassificationReported Allergen(s)Allergy TypeDate of OnsetReaction(s) Facility (2 sources)Amoxicillin / Clavulanate; Translations: [facility]in[facility] sources)Sulfamethoxazole / Trimethoprim; Translations: [Bactrim]Drug Allergy [facility]ository (2 sources)Vancomycin; Translations: [vancomycin]Drug AllergyThe [facility] (2 sources)topiramate; Translations: [Topamax]Drug Allergycaused kidney stones [facility] Repository (1 source)Vancomycin; Translations: [Vancocin][facility] (1 source)Amoxicillin / Clavulanate; Translations: [amoxicillin-clavulanate]Drug AllergyDiarrhea (finding)[facility] (1 source)Sulfamethoxazole / Trimethoprim; Translations: [sulfamethoxazole-trimethoprim][facility] ([facility])Vancomycin; Translations: [vancomycin][facility]ergy[facility] Medications Current Medications MedicationDrug Class(es)DatesSig (Normalized)Sig (Original)0.75 ML semaglutide 3.2 MG/ML Auto-Injector [Wegovy] (1 source)Start: 55-26-2468hcudah 2.4 mg by subcutaneous injection every week Wegovy Pen 2.4 mg/0.75 mL subcutaneous solution 2.4 mg, SubCutaneous, qWeek, Refills(s) 0 Start Date: 04/18/25 Status: Ordered Medication Dispense Status: Completed Total Allowed Fills: 1 Fills Dispensed: 0amphetamine aspartate 7.5 mg / amphetamine sulfate 7.5 mg / dextroamphetamine saccharate 7.5 mg / de xtroamphetamine sulfate 7.5 mg oral tablet (1 source)Central Nervous System StimulantStart: 64-60-9200xmgo 1 tablet by mouth once dailyAdderall 30 mg oral tablet 30 mg, 1 tab(s), Oral, Daily, Refill(s) 0, Other (see comment) Start Date: 04/12/17 Status: Ordered Medication Dispense Status: Completed Total Allowed Fills: 1 Fills Dispensed: 0aspirin 81 mg oral tablet (1 source)Platelet Aggregation Inhibitor, Nonsteroidal Anti-inflammatory Drug Start: 39-79-7210ddxk 81 mg by mouth once dailyaspirin 81 mg, Oral, Daily, Refills(s) 0, Prophylaxis Start Date: 02/02/18 Status: Ordered MedicationDispense Status: Completed Total Allowed Fills: 1 Fills Dispensed: 0citalopram 40 mg oral tablet (1 source)Serotonin Reuptake InhibitorStart: 50-72-6894bbem 1 tablet by mouth once dailyCeleXA 40 mg Tab 40 mg = 1 tab(s), Oral, Daily, Refills(s) 0, Depression Start Date: 06/17/15 Status: Ordered Medication Dispense Status: Completed Total Allowed Fills: 1 Fills Dispensed: 0diclofenac sodium 75 mg delayed release oral tablet (1 source)Nonsteroidal Anti-inflammatory DrugStart: 02-70-8902zmil 1 tablet by mouth twice dailydiclofenac sodium 75 mg Oral EC Tab 75 mg = 1 tab(s), Oral, BID, Refills(s) 0 Start Date: 04/18/25 Status: Ordered Medication Dispense Status: Completed Total Allowed Fills: 1 Fills Dispensed: 0eszopiclone 2 mg oral tablet (1 source)Start: 48-71-3209jwsv 1 tablet by mouth once daily at bedtime as neededLunesta 2 mg Tab 2 mg = 1 tab(s), Oral, Once a day (at bedtime), PRN for insomnia, Refills(s) 0 Start Date: 04/18/25 Status: Ordered Medication Dispense Status: Completed Total Allowed Fills: 1 FillsDispensed: 0mesalamine 1000 mg rectal suppository (1 source)AminosalicylateStart: 38-83-4861lbug 1000 mg rectal route once daily at bedtimemesalamine 1000 mg Supp 1,000 mg = 1 supp, Rectal, Once a day (at bedtime), Refills(s) 0 Start Date: 04/18/25 Status: Ordered Medication Dispense Status: Completed Total Allowed Fills: 1 Fills Dispensed: 0Multivitamins and Minerals (1 source)Start: 45-13-5404aocu 1 tablet by mouth once dailyMultivitamins and Minerals 1 tab, Oral, Daily, Refill(s) 0, Prophylaxis Start Date: 02/08/12 Status: Ordered Medication Dispense Status: Completed Total Allowed Fills: 1 Fills Dispensed: 024 hr oxybutynin chloride 5 mg extended release oral tablet (1 source)Cholinergic Muscarinic AntagonistStart: 09-78-7766fyyq 1 tablet by mouth once dailyoxybutynin 5 mg ER Tab 5 mg = 1 tab(s), Oral, Daily, Refills(s) 0 Start Date: 04/18/25 Status: Ordered Medication Dispense Status: Completed Total Allowed Fills: 1 Fills Dispensed: 0pantoprazole 40 mg delayed release oral tablet (1 source)Proton Pump InhibitorStart: 53-27-2318qmsx 1 tablet by mouth twice dailyProtonix 40 mg Tab-DR 40 mg = 1 tab(s), Oral, BID, Refills(s) 0 Start Date: 04/18/25 Status: Ordered Medication Dispense Status: Completed Total Allowed Fills: 1 Fills Dispensed: 0Vitamin D2 2000 intl units oral capsule (1 source)Start: 87-12-7008tdgu 1 capsule by mouth once dailyVitamin D2 2000 intl units oral capsule 50 mcg = 1 cap(s), Oral, Daily, cap(s), Refills(s) 0 Start Date: 04/18/25 Status: Ordered Medication Dispense Status: Completed Total Allowed Fills: 1 Fills Dispensed: 0 Problems Active Problems Problem ClassificationProblemDateDocumented DateEpisodic/ChronicAbdominal pain (2 sources)Left lower quadrant pain; Translations: [Left lower quadrant pain] Onset: 62-55-8387EqdywdesSahiaxcl foot deformities (1 source)Ovufwg31-26-3090LfbekppoHjpqbjo disorders (1 source)Ircixvh63-70-6289YddtladVnrpqrgui-bclniwz, conduct, and disruptive behavior disorders (1 source)Attention deficit hyperactivity azfygoww44-40-7206GgtdajsCidqfpcf of urinary tract (1 source)Kidney zqacf43-62-1270BbzcelrtInbcht of breast (1 source)Malignant tumor of -38-3542YcfmhvaYvtwaed obstructive pulmonary disease and bronchiectasis (1 source)Chronic obstructive lung dsgoiih01-51-3558LgavryyOjurcymapj disorders (2 sources)Gastroesophageal reflux niznjbb61-32-9130YldhjakLglkhufcozbjewjh hemorrhage (4 sources)Melena; Translations: [Hemorrhage of anus and rectum]Onset: 24-99-4815WvtplgjqNkzsv diseases of bladder and urethra (1 source)Spasm of ispthmz87-24-6125MemkjssYswjn gastrointestinal disorders (1 source)Irritable bowel vfqgxsub52-75-2312VbmrukeTpham gastrointestinal disorders (1 source)Personal history of other diseases of the digestive systemOnset: 17-11-8824UzcksxbtRlegk gastrointestinal disorders (1 source)H/O: ulcerative shyothl95-51-5858XbinpdbdFavup nutritional; endocrine; and metabolic disorders (1 source)Mwuqopttun57-33-0822GkszpwkrOcoyq nutritional; endocrine; and metabolic disorders (1 source)Overweight in adulthood with body mass index of 25 or more but less than 7234-59-0187TqprntngEwokseco codes; unclassified (1 source)Menopause exqfgpr38-45-3257IinoikwfIwunhhrgz and history of mental health and substance abuse codes (2 sources)Ex-smoker; Translations: [H/O: depression]01-75-6779Payirour Past or Other Problems Problem ClassificationProblemDateDocumented DateEpisodic/ChronicSubstance- related disorders (1 source)Smoker Resolved: 07-52-390182935997-63-5939IkxdgklVivuhtw on above:Added secondary to documentation in Social History. Results Test NameValueInterpretationReference RangeFacilityAmbulatory Visit Summaryon 06-99-8906Hgoyesbdkh Visit SummaryAmbulatory Visit Summary BENJAMIN JENKINS :1965 Visit Date:05/01/2025 Ambulatory Visit Instructions Your Care Team Attending Physician - Shreyas KENT MD Primary Care Physician - Anuj Coleman MD Referring Physician - Anuj oCleman MD This Is Your Medications List Contact prescribing physician if questions or concerns amphetamine-dextroamphetamine (Adderall 30 mg oral tablet) aspirin citalopram (CeleXA 40 mg Tab) diclofenac (diclofenac sodium 75 mg Oral EC Tab) ergocalciferol (Vitamin D2 2000 intl units oral capsule) eszopiclone (Lunesta 2 mg Tab) mesalamine (mesalamine 1000 mg Supp) multivitamin with minerals (Multivitamins and Minerals) oxybutynin (oxybutynin 5 mg ER Tab) pantoprazole (Protonix 40 mg Tab-DR) semaglutide (Wegovy Pen 2.4 mg/0.75 mL subcutaneous solution) Procedures Performed Colonoscopy (02/2018), Lithotripsy (07/09/2017), ESWL - Extracorporeal shockwave lithotripsy of ureteric calculus (06/11/2017), right bunionectomy (06/27/2015), Bilateral mastectomy, Breast reconstruction, Excision of thyroglossal duct cyst, Laparoscopic cholecystectomy, Lithotripsy, lymph node removal, Right oophorectomy. Discharge Vitals Heart Rate (Peripheral) 72 Respiratory Rate 16 Blood Pressure 110/64 Height 155.5 cm Height 61 in Weight 68.3 kg Weight 150.576 lb BMI 28.25 Medications What How Much When Instructions Unchanged amphetamine-dextroamphetamine (Adderall 30 mg oral tablet) 1 Tablets By Mouth Every day Contact prescribing physician if questions or concerns Unchanged aspirin 81 Milligram By Mouth Every day Contact prescribing physician if questions or concerns Unchanged citalopram (CeleXA 40 mg Tab) 1 Tablets By Mouth Every day Contact prescribing physician if questions or concerns Unchanged diclofenac (diclofenac sodium 75 mg Oral EC Tab) 1 Tablets By Mouth 2 times a day Contactprescribing physician if questions or concerns Unchanged ergocalciferol (Vitamin D2 2000 intl units oral capsule) 1 Capsules By Mouth Every day Contact prescribing physician if questions or concerns Unchanged eszopiclone (Lunesta 2 mg Tab) 1 Tablets By Mouth Once a day (at bedtime) as needed for for insomnia Contact prescribing physician if questions or concerns Unchanged mesalamine (mesalamine 1000 mg Supp) 1 Suppositories By rectum Once a day (at bedtime) Contact prescribing physician if questions or concerns Unchanged multivitamin with minerals (Multivitamins and Minerals) 1 tab By Mouth Every day Contact prescribing physician if questions or concerns Unchanged oxybutynin (oxybutynin 5 mg ER Tab) 1 Tablets By Mouth Every day Contact prescribing physician if questions or concerns Unchanged pantoprazole (Protonix 40 mg Tab-DR) 1 Tablets By Mouth 2 times a day Contact prescribingphysician if questions or concerns Unchanged semaglutide (Wegovy Pen 2.4 mg/ 0.75 mL subcutaneous solution) 2.4 Milligram SubcutaneousEvery week Contact prescribing physician if questions or concerns Allergies Augmentin (Diarrhea) Bactrim (Hives) Topamax (caused kidney stones) vancomycin (Hives) Problems Ongoing - Any problem that you are currently receiving treatment for. ADHD (attention deficit hyperactivity disorder) Anxiety Bladder spasm BMI 28.0-28.9,adult Breast cancer Chronic obstructive pulmonary disease GERD (gastroesophageal reflux disease) IBS (irritable bowel syndrome) Overweight Historical - Any problem that you are no longer receiving treatment for. Kidney stone Smoker Patient Survey You may receive a survey via text or e-mail asking about your office visit. Please share your experience with us by completing your survey. We appreciate your feedback and thank you for choosing us for your care. Patient Portal You may access all of your results and other medical record information on our secure patient portal. If you are not signed up for this yet, please contact [employer] at [phone] to get signed up today. Language Information Language assistance services are available as needed. [facility] HospitalProvider Letteron [facility]-2025 Provider LetterProvider Letter Anuj Coleman, [address] [facility] [place] [address] Re: BENJAMIN JENKINS Date of : [address] Coleman, Thank you for your referral. To date, we have been unsuccessful in contacting or scheduling your patient for an appointment. Please have the patient contact the office at their convenience at [phone], if they would like to schedule with one of our General Surgeons. Sincerely, [facility] General Surgery [address] [place] [address], [address] [place], [place] [address] [phone]. Francis HospitalINSULINon 28-62-8201Icpyspr1.4 uIU/mLNormal2.6-24.9The [facility] CenterComment on above:Performed By: #### CMP, TSH, T7, LIPID, LDH #### [facility] [address] [place] [address] Dr. Zain Talbot4 LABCORPon 40-19-6829Q3 [Mass/Vol]7.8 ug/dLNormal4.5-12.0The [facility] CenterComment on above:Performed By: #### T4LC #### [facility] [address] [place] [address] Dr. Zain Molian AUTO DIFFon 13-89-8532OXHZ #0.0 103/ulNormal0.0-0.1Mercy HealthComment on above:Performed By: #### CBC #### [facility] [address] [place] [address] Dr. Zain Jhasophils/100 WBC (Bld)0.7 %Normal0.2-2.0[facility] Comment on above:Performed By: #### CBC #### [facility] [address] [place] [address] Dr. Zain Branch #0.1 103/ulNormal0.0-0.7The [facility] CenterComment on above: Performed By: #### CBC #### [facility] [address] [place] [address] Dr. Zain Barnesosinophils/100 WBC (Bld)1.3 %Normal0.9-7.0[facility] Comment on above:Performed By: #### CBC #### [facility] [address] [place] [address] Dr. Zain Barnesrythrocyte distribution width (RBC) [Ratio]13.1 %Odlkho10.0-15.0 The [facility] CenterComment on above:Performed By: #### CBC #### [facility] [address] [place] [address] Dr. Zain VidalHematocrit (Bld) [Volume fraction]41.8 %Iipkke67.0-48.0The [facility] CenterComment on above:Performed By: #### CBC #### [facility] [address] [place] [address] Dr. Zain VidalHemoglobin (Bld) [Mass/Vol]13.4 g/mYJdmtft52.0-16.0The [facility] CenterComcorewell health gerber hospital on above:Performed By: #### CBC #### [facility] [address] [place] [address] Dr. Zain Juan #0.01 10e3/ulNormal0.00-0.03The [facility] CenterComment on above:Performed By: #### CBC #### [facility] [address] [place] [address] Dr. Zain Juan %0.2 %Normal0.0-0.5The [facility] CenterComcorewell health gerber hospital on above: Performed By: #### CBC #### [facility] [address] [place] [address] Dr. Zain GarciaH #2.3 103/ulNormal1.2-3.8The [facility] CenterComment on above:Performed By: #### CBC #### [facility] [address] [place] [address] Dr. Zain Baronemphocytes/100 WBC (Bld)37.7 %Mgtser29.5-60.0The [facility] CenterComcorewell health gerber hospital on above:Performed By: #### CBC #### [facility] [address] [place] [address] Dr. Zain LuqueUAL DIFF REQNONormalThe [facility] CenterComment on above: Performed By: #### CBC #### [facility] [address] [place] [address] Dr. Zain Phan (RBC) [Entitic mass]29.8 obNumten52.7-34.0The [facility] CenterComment on above:Performed By: #### CBC #### [facility] [address] [place] [address] Dr. Zain Phan (RBC) [Mass/Vol]32.1 g/fBUblphi35.9-35.2The [facility] CenterComment on above:Performed By: #### CBC #### [facility] [address] [place] [address] Dr. Zain Phan (RBC) [Entitic vol]92.9 gUDsfulp06.0-99.0The [facility] CenterComment on above:Performed By: #### CBC #### [facility] [address] [place] [address] Dr. Zain Deng #0.5 103/ulNormal0.3-0.8The [facility] CenterComment on above:Performed By: #### CBC #### [facility] [address] [place] [address] Dr. Zain Walkerocytes/100 WBC (Bld)8.0 %Normal1.7-12.0The [facility] Comment on above:Performed By: #### CBC #### [facility] [address] [place] [address] Dr. Zain Breaux #3.1 103/ulNormal1.4-6.5The [facility] CenterComment on above:Performed By: #### CBC #### [facility] [address] [place] [address] Dr. Zain Livingstonutrophils/100 WBC (Bld)52.1 %Cjqlsp59.0-75.0The [facility] CenterComment on above:Performed By: #### CBC #### [facility] [address] [place] [address] Dr. Zain Beallet mean volume (Bld) [Entitic vol]9.6 fLNormal9.5-13.5The [facility] CenterComment on above:Performed By: #### CBC #### [facility] [address] [place] [address] Dr. Zain VidalPLT268 103/yrPqkgak327-231[facility] on above: Performed By: #### CBC #### [facility] [address] [place] [address] Dr. Zain VidalRBC4.50 106/ulNormal4.20-5.40The [facility] CenterComcorewell health ger[facility] hospital on above:Performed By: #### CBC #### [facility] [address] [place] [address] Dr. Zain VidalWBC6.0 103/ulNormal4.0-11.0The [facility] on above: Performed By: #### CBC #### [facility] [address] [place] [address] Dr. Zain VidalFRAARON THYROXINE INDEX T7on 41-20-4409CWQ2.16Hdoecz2.30-4.50The [facility] on above:Performed By: #### CMP, TSH, T7, LIPID, LDH #### [facility] [address] [place] [address] Dr. Zain VidalT3U32.0 %Uqnltp06.0-39.0The [facility] on above: Performed By: #### CMP, TSH, T7, LIPID, LDH #### [facility] [address] [place] [address] Dr. Zain VidalT4 [Mass/Vol]7.80 ug/dLNormal4.80-13.90The [facility] Comment on above:Result Comment: T4 testing performed by LabCorpPerformed By: #### CMP, TSH, T7, LIPID, LDH #### [facility] [address] [place] [address] Dr. Zain VidalGLYCOHEMOGLOBIN A1Con 47-41-4194QRF RECOMMENDATIONSEE BELOWNormal The [facility] CenterComcorewell health ger[facility] hospital on above:Result Comment: ADA RECOMMENDED LIMIT 4.0 - 6.0 ADA THERAPEUTIC TARGET < 7.0 ACTION SUGGESTED > 7.0Performed By: #### A1C #### [facility] [address] [address] [address] Zain VidalGlucose [Mass/Vol]105 mg/dLNoBlanchard Valley Health SystemComment on above:Performed By: #### A1C #### [facility] [address] [address] [address] Zain VidalHbA1c (Bld) [Mass fraction]5.3 %Normal4.5-6.2The [facility] CenterComment on above:Performed By: #### A1C #### [facility] [address] [place] [address] Dr. Zain Morrison 61-75-2007Jtkd [Mass/Vol]60.0 ug/hPHkpsrx66.0-170.0The [facility] CenterComment on above:Performed By: #### IRON #### [facility] [address] [place] [address] Dr. Zain Thomas 54-41-2629LKS563 U/TVkyzkw36-405Isp [facility] Comment on above:Performed By: #### CMP, TSH, T7, LIPID, LDH #### [facility] [address] [place] [address] Dr. Zain RichardsID PROFILEon 22-70-2210DPBO-HDL RATIO NORMSEE BELOWHenry County HospitalComment on above:Result Comment: 3.3 - 4.4 LOW RISK 4.4 - 7.1 AVERAGE RISK 7.1 - 11.0 MODERATE RISK >11.0 HIGH RISKPerformed By: #### CMP, TSH, T7, LIPID, LDH #### [facility] [address] [place] [address] Dr. Zain VidalCholesterol [Mass/Vol]219 mg/dLCritically high<=200The [facility] CenterComment on above:Performed By: #### CMP, TSH, T7, LIPID, LDH #### [facility] [address] [place] [address] Dr. Zain VidalCholesterol in HDL [Mass/Vol]86 mg/dLCritically gdtm44-90Vgm [facility] CenterComment on above:Performed By: #### CMP, TSH, T7, LIPID, LDH #### [facility] [address] [address] [address] Zain VidalCholesterol in LDL [Mass/Vol]119.6 mg/dLHenry County HospitalComment on above:Performed By: #### CMP, TSH, T7, LIPID, LDH #### [facility] [address] [address] [address] Zain Akbar.total/Cholesterol in HDL [Mass ratio]2.5 {ratio} NormalMercy HealthComment on above:Performed By: #### CMP, TSH, T7, LIPID, LDH #### [facility] [address] [address] [address] Zain Cunningham NORMAL> or = 60 mg/dl - LOW CARDIOVASCULAR RISK <40 mg/dl - HIGH CARDIOVASCULAR RISKNoBlanchard Valley Health SystemComment on above:Performed By: #### CMP, TSH, T7, LIPID, LDH #### [facility] [address] [address] [address] Zain Santana CALC NORMALSEE BELOWHenry County HospitalComment on above:Result Comment: <100 mg/dl OPTIMAL 100 - 129 mg/dl NEAR OR ABOVE OPTIMAL 130 - 159 mg/dl BORDERLINE HIGH 160 - 189 mg/dl HIGH >190 mg/dl VERY HIGH Performed By: #### CMP, TSH, T7, LIPID, LDH #### [facility] [address] [address] [address] Zain VidalTriglyceride [Mass/Vol]67 mg/dLNormal<=150[facility] Comment on above:Performed By: #### CMP, TSH, T7, LIPID, LDH #### [facility] [address] [address] [address] Zain VidalVLDL CALC13.4 mg/dLNoBlanchard Valley Health SystemComment on above: Performed By: #### CMP, TSH, T7, LIPID, LDH #### [facility] [address] [address] [address] Zain Gutierrez BLD IMMUNO SCREENon 55-92-6044XFTLCB BLOODNegativeNormal NEGATIVEThe [facility] CenterComment on above:Performed By: #### OBSCRN #### [facility] [address] [place] [address] Dr. Zain Delcid 14(COMP METB)on 52-42-1632Znnolsb [Mass/Vol]3.7 g/dLNormal 3.4-5.0The [facility] CenterComment on above:Performed By: #### CMP, TSH, T7, LIPID, LDH #### [facility] [address] [place] [address] Dr. Zain VidalAlbumin/Globulin [Mass ratio]1.0 {ratio}NormalThe [facility] CenterComment on above:Performed By: #### CMP, TSH, T7, LIPID, LDH #### [facility] [address] [place] [address] Dr. Zain Sharp [Catalytic activity/Vol]89 U/KObfjbv62-763Xfw [facility] CenterComment on above:Performed By: #### CMP, TSH, T7, LIPID, LDH #### [facility] [address] [place] [address] Dr. Zain Arenas [Catalytic activity/Vol]17 U/XMyjejj00-26Lyt [facility] CenterComment on above:Performed By: #### CMP, TSH, T7, LIPID, LDH #### [facility] [address] [place] [address] Dr. Zain Ramso gap [Moles/Vol]12.3 mmol/LNormalThe [facility] Comment on above:Performed By: #### CMP, TSH, T7, LIPID, LDH #### [facility] [address] [place] [address] Dr. Zain Colindres [Catalytic activity/Vol]18 U/CLgdznk96-70Kqg [facility] Hospitalment on above:Performed By: #### CMP, TSH, T7, LIPID, LDH #### [facility] [address] [place] [address] Dr. Zain VidalBilirubin [Mass/Vol]0.5 mg/dLNormal0.2-1.0The [facility] Comment on above:Performed By: #### CMP, TSH, T7, LIPID, LDH #### [facility] [address] [address] [address] Zain VidalCalcium [Mass/Vol]8.7 mg/dLNormal8.5-10.1The [facility] Comment on above:Performed By: #### CMP, TSH, T7, LIPID, LDH #### [facility] [address] [place] [address] Dr. Zain VidalChloride [Moles/Vol]101 mmol/VVfhmnh76-770Xyl [facility] Comment on above:Performed By: #### CMP, TSH, T7, LIPID, LDH #### [facility] [address] [place] [address] Dr. Zain VidalCO2 [Moles/Vol]28.5 mmol/UBeijtz29.0-32.0The [facility] Comment on above:Performed By: #### CMP, TSH, T7, LIPID, LDH #### [facility] [address] [place] [address] Dr. Zain VidalCreatinine [Mass/Vol]0.70 mg/dLNormal0.55-1.02The [facility] CenterComment on above:Performed By: #### CMP, TSH, T7, LIPID, LDH #### [facility] [address] [place] [address] Dr. Zain BarnesGFR-AF NICARAGUAN>60Normal>=60The [facility] CenterComment on above:Performed By: #### CMP, TSH, T7, LIPID, LDH #### [facility] [address] [place] [address] Dr. Zain BarnesGFR-NON AF NICARAGUAN>60Normal>=60The [facility] CenterComment on above:Performed By: #### CMP, TSH, T7, LIPID, LDH #### [facility] [address] [place] [address] Dr. Zain VidalGlobulin (S) [Mass/Vol]3.6 g/dLNormalThe [facility] CenterComment on above:Performed By: #### CMP, TSH, T7, LIPID, LDH #### [facility] [address] [place] [address] Dr. Zain VidalGlucose [Mass/Vol]84 mg/pTLyjrmx60-002Kxa [facility] Comment on above:Performed By: #### CMP, TSH, T7, LIPID, LDH #### [facility] [address] [place] [address] Dr. Zain VidalPotassium [Moles/Vol]3.8 mmol/LNormal3.5-5.1The [facility] Comment on above:Performed By: #### CMP, TSH, T7, LIPID, LDH #### [facility] [address] [place] [address] Dr. Zain VidalProtein [Mass/Vol]7.3 g/dLNormal6.4-8.2[facility] Comment on above:Performed By: #### CMP, TSH, T7, LIPID, LDH #### [facility] [address] [place] [address] Dr. Zain VidalSodium [Moles/Vol]138 mmol/MMlamcf541-226Jxl [facility] Comment on above:Performed By: #### CMP, TSH, T7, LIPID, LDH #### [facility] [address] [place] [address] Dr. Zain VidalUrea nitrogen [Mass/Vol]11.0 mg/dLNormal7.0-18.0[facility] HealthComment on above:Performed By: #### CMP, TSH, T7, LIPID, LDH #### [facility] [address] [place] [address] Dr. Zain Gan nitrogen/Creatinine [Mass ratio]15.7 mg/mgNormalThe [facility] CenterComment on above:Performed By: #### CMP, TSH, T7, LIPID, LDH #### [facility] [address] [place] [address] Dr. Zain Blank 08-16-0475WKU3.697 uIU/mLNormal0.358-3.740The [facility] CenterComment on above:Performed By: #### CMP, TSH, T7, LIPID, LDH #### [facility] [address] [address] [address] [facility]ain [facility]ibay [facility]: Result Comment: <0.34 UIU/ml HYPERTHYROID 0.34-5.60 UIU/ml EUTHYROID >5.60 UIU/ml HYPOTHYROIDPerformed By: #### CMP, TSH, T7, LIPID, LDH #### [facility] [address] [address] [address] Zain Vidal Encounters Encounter DateEncounter TypeCare ProviderFacilityStart: 05-01-2025 End: 03-15-5117njqgpodtfcMgugcfh R NILLFacility:[facility] 05-01-2025 End: 98-65-5702Sghdwqh encounter procedureMichael R NILL [phone]-PybayMansfield Hospital [facility] [place] Start: 80-09-6588boaosxxzweBnvpzga NILLFacility:[facility]tart: 30-64-6236Hmpaxfyks for general adult medical examination without abnormal findingsDR ANUJ Costae [facility]Start: 12-08-2021 End: 75-42-1691gadkcgwtwzLL ANUJ HOYFacility:L5Rgnay: 12-08-2021 End: 98-97-7315Dxmztzsdr for general adult medical examination without abnormal findingsDR ANUJ HOYFacility:T1Xejxv: 11-06-2021 End: 23-68-1870plyeamrrjcXS ANTONIA V WESTFacility:N9Hxmzj: 46-28-2203zpjzoeohtaJD ANUJ HOYFacility:H1 Procedures DateProcedureProcedure DetailPerforming ClinicianStart: 99-83-2601Smvhdwboxza Shreyas NILL Start: 71-32-7737GsfosnrgapkIrxbtut NILL Comment on above:rt eswlStart: 94-65-2178Gyuyodkzsckofg shockwave lithotripsy of ureterMichael NILL Comment on above:RIGHT ESWL // RIGHT CYSTO RETROGRADE // RIGHT URETEROSCOPY // RIGHT STENT PLACEMENT and stone retreivalStart: 90-27-5514dwntd bunionectomyMichael NILL Bilateral mastectomyMichael NILL Excision of thyroglossal duct cystMichael NILL Laparoscopic cholecystectomyMichael NILL LithotripsyMichael NILL lymph node removalMichael NILL MammoplastyMichael NILL Right oophorectomyMichael NILL Immunizations Immunization DateImmunizationNotesCare FmookzwyOwwjlwzi63-16-4986SCGQ-ZqY-3 (COVID-19) mRNAMUL.ORD![id number] NILL [phone]-VasdcC[facility] [place] Comment on above:Result Comment: 2025-04-18: [id number]-BbR-8 (COVID- 19) mRNA-1273 vaccineMichael NILL [phone]-GesusKettering Health Comment on above:Result Comment: 2025-04-18: [id number]-IbN-2 (COVID- 19) mRNA BNT-162b2 vaxMichael NILL [phone]-IdwudKettering Health Comment on above:Result Comment: 2025-04-18: [id number]-MxS-6 (COVID- 19) mRNA BNT-162b2 vaxMichael NILL [phone]-CihqsKettering Health Comment on above:Result Comment: 2025-04-18: [id number] Payers DatePayer CategoryPayerPolicy [id number] [id number] Social History DateTypeDetailFacilityStart: 37-63-1220Rtlztrb smoking statusHeavy tobacco smoker (finding)[facility] BalticTobacco smoking statusNeClermont County Hospital [facility] Jacksonexual OrientationMansfield Hospital [facility] [place] Sex Assigned At BirthFeMarion Hospitaltart: 57-43-4193XuiOzrnlt (finding)[facility] Clinical Note 05-01-2025 Note Date & HdymFsvzPxpltxlx21-40-2135 NoteGeneral Surgery Office/Clinic Note Chief Complaint consultation for LLQ pain HPI Staff 59 year old female presents on consultation from Dr. Coleman for LLQ pain and rectal bleeding. Reports approximately one year history of stated symptoms. Verbalized pain lasts for several minutes and resolves after bowel movement. She will experience this twice per week. Verbalized rectal bleeding is bright red and only with bowel movements. She is unable to state how frequently this happens but is not related to LLQ pain. Verbalized blood is in stool, on toilet tissue and in toilet water. Denies rectal pain or change in bowel habits. Denies nausea, vomiting or weight loss. No imaging completed. Last colonoscopy completed 08/2017 with hyperplastic rectal polyp. History of Present Illness 59 yo female with h/o COPD, GERD, ADHD, breast cancer, anxiety, referred for abd pain; reports 2 year y/o intermittent sharp LLQ pain, only lasts seconds, always in same spot, no radiation of pain, no N/V; intermittent hematochezia, occasional blood with wiping, red blood; remote h/o ulcerative colitis, had colonoscopy and treatment by Dr Rojas in 2007; was treated at that time; then discontinued medications; abd operations significant for LS cholecystectomy and right oophorectomy; last colonoscopy 2017 with removal of small hyperplastic rectal polyp; restarted Mesalamine rectal suppositories several years ago, takes them prn for bleeding/pain; on baby asa daily and Diclofenac; smokes daily. Review of Systems PHQ Score Initial Depression Screen Score: 0 SCORE ROS - Provider Constitutional: no fever, no sweats, no weight loss. Eyes: yes glasses, no blurred vision, no visual loss. ENMT: no dentures, no hoarseness, no swallowing difficulties, no hearing loss, no ear infection(s),no nose bleeds. Cardiovascular: normal blood pressure, no chest pain, regular heartbeat, no heart murmur. Respiratory: no shortness of breath, no cough, no asthma, no wheezing. Gastrointestinal: no nausea, no vomiting, no diarrhea, no constipation, no blood in stool, no change in bowel habits, no abdominal pain, no hepatitis. Genitourinary: no kidney stones, no urine infection, no dysuria. Musculoskeletal: no pain, no weakness. Skin: no changing moles, no rash, no skin lumps. Neurologic: no seizures, no epilepsy, no headache. Psychiatric: no emotional or psychiatric problem. Heme/Lymph: no bleeding problems, no anemia, no blood clots, no transfusions. Allergy/Immunologic: no swollen lymph nodes/glands, no IV drug abuse. Other: Additional ROS info: Except as noted in the above Review of Systems and in the History of Present Illness, all other systems have been reviewed and are negative or noncontributory. Physical Exam Vitals & Measurements HR: 72(Peripheral) RR: 16 BP: 110/64 HT: 61 in HT: 155.5 cm WT: 150.576 lb WT: 68.3 kg BMI: 28.25 HEENT: normal conjunctiva, sclera clear, no scleral icterus, EOM intact, PERRLA, oral mucosa moist without lesions. Neck: trachea midline, no mass, symmetric, no thyromegaly or nodules, no adenopathy Respiratory: lungs CTA, respirations non labored. Cardiovascular: regular rate and rhythm, no murmur, no pedal edema or varicosities. Gastrointestinal: soft, non distended, mild tenderness, mid abd, no peritoneal signs no masses, no palpable hernias, diastasis recti no, no hepatosplenomegaly; normal bs Musculoskeletal: normal gait, digits and nails without infection, nodes, cyanosis, clubbing. Skin: no rashes, no lesions, no ulcers, no subcutaneous nodules, induration. Psychiatric/Neuro: oriented to time, place, person, judgement normal, affect appropriate for age, insight intact, no focal deficits. Tests: review of old records completed , Discussed surgical options, risks, and possible complications with patient. Assessment/Plan 1. Abdominal pain, left lower quadrant (R10.32: Left lower quadrant pain) plan colonoscopy under anesthesia for further evaluation, informed consent obtained. 2. Hematochezia (K92.1: Melena) see # 1 3. Rectal bleeding (K62.5: Hemorrhage of anus and rectum) see # 1 4. History of ulcerative colitis (Z87.19: Personal history of other diseases of the digestive system) see # 1 Follow-up No qualifying data available Problem List/Past Medical History Ongoing Abdominal pain, left lower quadrant ADHD (attention deficit hyperactivity disorder) Anxiety Bladder spasm BMI 28.0-28.9,adult Breast cancer Chronic obstructive pulmonary disease GERD (gastroesophageal reflux disease) Hematochezia History of ulcerative colitis IBS (irritable bowel syndrome) Overweight Rectal bleeding Historical Kidney stone Smoker Procedure/Surgical History Colonoscopy (02/2018), Lithotripsy (07/09/2017), ESWL - Extracorporeal shockwave lithotripsy of ureteric calculus (06/11/2017), right bunionectomy (06/27/2015), Bilateral mastectomy, Breast reconstruction, Excision of thyroglossal duct cyst, Laparoscopic cholec (more content not included)...[facility] Comment on above:Result Comment: Electronically Signed By: Shreyas KENT MD\Date and Time Signed: 05/01/25 14:27 EDT Hospital course Narrative Note Date & TypeNoteFacilityHospital course Narrative No data available for this section [facility] [place] [facility] Discharge instructions Note Date & TypeNoteFacilityHospital Discharge instructions No data available for this section [facility] [place] Progress note Note Date & TypeNoteFacilityProgress note No data available for this section [facility] Summary Purpose Family History No Family History Records FoundNo Family History Records Found No data available for this section Advance Directives No Advanced Directives Records FoundNo Advanced Directives Records Found Additional Source Comments INFORMATION SOURCE (unrecogn ized section and content) DATE CREATED AUTHOR 02/15/2022 [facility] DATE CREATED AUTHOR AUTHOR'S ORGANIZ ATION 05/03/2025 [facility] Patient Care team informatio n (unrecognized section and content) Personnel Name: Anuj Coleman MD Address: [address] [place] [address] [employer]: FOR RECORDS PERTAINING TO PATIENTS WHO ARE [...] BE BASED ON THE PRIMARY CLINICAL RECORDS. [employer] [facility]. provides no warranty or guarantee of the accuracy or completeness of information in this document.
[2025-05-16 08:35] VITALS: BP 118/73; PULSE 76; TEMP 36.1; O2SAT 98; BMI 28.2
[2025-05-16 11:07] VITALS: BP 89/52; PULSE 89; TEMP 36.2; O2SAT 95
[2025-05-16 11:22] VITALS: BP 84/42; PULSE 73; O2SAT 100
[2025-05-16 11:37] VITALS: BP 90/53; PULSE 68; O2SAT 100
[2025-05-16 12:07] VITALS: BP 100/56; PULSE 70; O2SAT 100
== END 2025-05-16 12:10 | disposition home or self-care (01) ==
LOC: SURGOUT 08:28
PROVIDERS: PCP Family Medicine; Visit Provider Surgery
PROC: (CPT 00811; principal; 2025-05-16 09:35)
DX: R10.32 Left lower quadrant pain (principal); K92.1 Melena; Q43.8 Other specified congenital malformations of intestine; Z87.19 Personal history of other diseases of the digestive system; Z86.0102 Personal history of hyperplastic colon polyps; J44.9 Chronic obstructive pulmonary disease, unspecified; K21.9 Gastro-esophageal reflux disease without esophagitis; Z85.3 Personal history of malignant neoplasm of breast; F41.9 Anxiety disorder, unspecified; Z90.49 Acquired absence of other specified parts of digestive tract; Z90.721 Acquired absence of ovaries, unilateral; Z90.13 Acquired absence of bilateral breasts and nipples; F17.210 Nicotine dependence, cigarettes, uncomplicated; M19.90 Unspecified osteoarthritis, unspecified site; F32.A Depression, unspecified
CPT/HCPCS: 00811; 45380; 88305; J2250; J2704; J3010